=== PATIENT | male | born 1935 | race Caucasian/White ===

== ENCOUNTER 2017-03-30 08:35 | Outpatient (CLI) | payer BC ==
--- NOTE | 2017-03-30 13:24 | CT ---
CT ABDOMEN AND PELVIS WITH IV CONTRAST: Date: 03/30/17 Multiple axial tomograms obtained of the abdomen and pelvis with IV enhancement in the portal venous phase. Oral contrast was administered. HISTORY: Small cell B-cell lymphoma. Follow-up. COMPARISON: CT abdomen and pelvis dated 12/14/15. FINDINGS: Images through the lung bases again show some mild stranding in both lung bases. There is a pleural b ased nodular density seen in the left posterior gutter measuring approximately 5.0 mm. This is a stab le pleural based nodular density. Bilateral renal cystic lesions are again noted. There are several large right renal cysts which are s table with two upper pole cysts measuring 5-6 cm and a mid pole cyst on the right measuring 4.6 cm. A lower pole cyst on the right with a calcification along its posterior wall is stable and measures up to 5.0 cm. There are numerous smaller cystic lesions seen bilaterally which appear stable. There are two tiny exophytic cysts from the lateral left renal cortex which measure approximately 1.0 cm each, which are unchanged. Small bowel loops are normal caliber. Colon unremarkable. Aorta normal caliber. Nonspecific periaortic lymph nodes are stable. There is confluent linear chain of lymph nodes along t he paraaortic region on the left which are unchanged. The previously noted mass along the left pelvic side wall has enlarged since the prior study. This ma ss now measures up to 5.0 cm AP dimension in the axial plane x approximately 2.3 cm width. These eric urements were approximately 1.4 cm width x 2.5 cm AP dimension. There is suggestion of some internal calcification within this mass lesion. This mass lesion now produces some mass effect on the iliac ve ssels pushing the vascular bundle medially. This mass density now abuts the iliopsoas muscle. Prostatic hypertrophy again noted. Mildly prominent left inguinal lymph nodes again noted. There are at least two left inguinal lymph no leonor measuring up to 1.2-1.3 cm. These left inguinal nodes have slightly decreased when compared to th e prior study. On the prior exam, there was one left inguinal lymph node measuring up to 1.9 cm. Smal l nonspecific right inguinal lymph nodes are stable. IMPRESSION: 1. Enlarging left pelvic side wall mass when compared to the prior study. 2. Stable paraaortic nonspecific lymph nodes. 3. Mildly prominent left inguinal lymph nodes which have slightly decreased in size from prior exam. 4. Pleural based nodular density in the left posterior lung base is stable and may represent pleural based rounded atelectasis. 5. Bilateral renal cystic lesions appear stable. 6. Prostatic hypertrophy is unchanged in appearance. POS: [facility]
[2017-03-30] MEDS ORDERED: ISOVUE-370 76%-LOCM 1 ML ONE (17:18)
== END 2017-03-30 08:36 | disposition home or self-care (01) ==
LOC: CT 08:35
PROVIDERS: ATTEND Internal Medicine Hematology & Oncology
DX: C83.03 Small cell B-cell lymphoma, intra-abdominal lymph nodes (principal); J98.4 Other disorders of lung; N40.0 Benign prostatic hyperplasia without lower urinary tract symptoms; N28.1 Cyst of kidney, acquired; R11.2 Nausea with vomiting, unspecified; R19.07 Generalized intra-abdominal and pelvic swelling, mass and lump
CPT/HCPCS: 74177

== ENCOUNTER 2017-07-07 14:12 | Observation (INO) | payer BC, MEDICARE ==
[2017-07-07] MEDS ORDERED: Ondansetron HCl/PF 4 MG/2 ML Vial ONE (14:27)
[2017-07-07 14:46] LABS: Hemoglobin 16.5 g/dL (14.0-18.0); Mean Corpuscular HGB CONC 34.7 g/dL (32.0-36.0); Mean Corpuscular Hemoglobin 31.1 pg (27.0-31.0); Mean Corpuscular Volume 89.6 fl (80.0-94.0); Mean Platelet Volume 8.6 fL (7.4-10.4); Platelet Count 130 thou/uL (130-400); RBC Distribution Width 12.6 % (11.5-14.5); Red Blood Cell (RBC) Count 5.31 mill/uL (4.70-6.10); White Blood Cell (WBC) Count 20.9 thou/uL (4.8-10.8)
[2017-07-07 15:04] LABS: ALT (SGPT) 11 U/L (8-55); AST (SGOT) 18 U/L (5-34); Albumin 4.6 g/dL (3.4-4.8); Alkaline Phosphatase 63 U/L (40-150); Anion Gap 15 mmol/L (10-20); BUN (Urea Nitrogen) 18 mg/dL (8.4-25.7); Bilirubin, Total 1.6 mg/dL (0.2-1.2); CK (CPK) 187 U/L (30-200); Calc. Creatinine Clearance 0 mL/min (70-130); Calcium 9.5 mg/dL (7.8-10.44); Carbon Dioxide 22 mmol/L (23-31); Chloride 102 mmol/L (98-107); Estimated GFR-MDRD 52; Globulin 2.7 g/dL (2.4-3.5); Glucose 98 mg/dL (83-110); Lipase 12 U/L (8-78); Potassium 3.6 mmol/L (3.5-5.1); Protein, Total 7.3 g/dL (5.8-8.1); Sodium 135 mmol/L (136-145)
[2017-07-07 15:05] LABS: Band 14 % (5-11); Lymphocytes 8 % (21-51); MDiff Complete? YES; Monocytes 4 % (0-10); Neutrophil 74 % (42-75); PLT Morphology Comment Appears Adequate
--- NOTE | 2017-07-07 15:07 | RAD ---
PORTABLE AP CHEST: Date: 07/07/17 HISTORY: Dyspnea. COMPARISON: 09/24/05. FINDINGS: The cardiac silhouette and pulmonary vasculature are within normal limits. There are minimal linear d ensities at the left lung base medially, probably related to superimposition of structures and mild s carring. Lungs are otherwise clear. There are calcified hilar lymph nodes again seen. Bilateral acrom ioclavicular joint osteoarthritis is present. No other interval change. IMPRESSION: No acute cardiopulmonary process. POS: [facility]
[2017-07-07 15:10] LABS: Troponin I Less than 0.010 ng/mL (< 0.028)
[2017-07-07 16:42] LABS: Bilirubin Negative (Negative); Blood, Urine Large (Negative); Clarity CLEAR (Clear); Glucose, Urine (Dipstick) Negative (Negative); Leukocyte Negative (Negative); Nitrite Negative (Negative); Protein, Urine (Dipstick) Trace mg/dL (Neg-Trace); Specific Gravity, Urine 1.015 (1.002-1.036); pH, Urine 6.5 (5.0-9.0)
[2017-07-07 16:44] LABS: Bacteria/HPF None Seen HPF (None Seen); Hyaline Casts/LPF 0-3 HYALINE CAST LPF (0-3 Hyaline); Pathc Cast-AUWi Flag 0.13 (0-2.49); RBC/HPF 21-50 HPF (0-3); Squamous Epithelial 0-3 HPF (0-3); WBC/HPF 0-3 HPF (0-3)
[2017-07-07] MEDS ORDERED: Azithromycin 500 MG VIAL ONE (17:14)
[2017-07-07] MEDS ORDERED: Milk Of Magnesia 30 ML UDCUP PO PRN (19:59)
[2017-07-07] MEDS ORDERED: hydrALAZINE 20 MG/ML VIAL SLOW IVP PRN (19:59)
[2017-07-07] MEDS ORDERED: HYDROcodone/Acetaminophen 5/325 mg Tablet PO PRN (19:59)
[2017-07-07] MEDS ORDERED: cefTRIAXone\\ROCEPHIN 1 GM in Sodium Chloride 0.9% 100 ML IVPB SCH (19:59)
[2017-07-07] MEDS ORDERED: Acetaminophen 325 MG TAB PO PRN (19:59)
[2017-07-07] MEDS ORDERED: Mag-Al 1200 mg/1200 mg/30 ML UDCUP PO PRN (19:59)
[2017-07-07] MEDS ORDERED: Benzonatate 100 MG CAP PO PRN (19:59)
[2017-07-07 20:57] LABS: Lactic Acid 2.3 mmol/L (0.5-2.2)
[2017-07-07 21:49] VITALS: BMI 24.3
[2017-07-08 06:06] LABS: Anion Gap 12 mmol/L (10-20); BUN (Urea Nitrogen) 17 mg/dL (8.4-25.7); Calc. Creatinine Clearance 51 mL/min (70-130); Calcium 8.3 mg/dL (7.8-10.44); Carbon Dioxide 24 mmol/L (23-31); Chloride 102 mmol/L (98-107); Estimated GFR-MDRD 52; Glucose 95 mg/dL (83-110); Potassium 3.6 mmol/L (3.5-5.1); Sodium 134 mmol/L (136-145)
[2017-07-08 06:20] LABS: Band 28 % (5-11); Hemoglobin 13.2 g/dL (14.0-18.0); Lymphocytes 2 % (21-51); MDiff Complete? YES; Mean Corpuscular HGB CONC 34.4 g/dL (32.0-36.0); Mean Corpuscular Hemoglobin 30.5 pg (27.0-31.0); Mean Corpuscular Volume 88.8 fl (80.0-94.0); Mean Platelet Volume 9.4 fL (7.4-10.4); Monocytes 6 % (0-10); Neutrophil 64 % (42-75); PLT Morphology Comment Appears Decreased; Platelet Count 103 thou/uL (130-400); RBC Distribution Width 12.2 % (11.5-14.5); Red Blood Cell (RBC) Count 4.32 mill/uL (4.70-6.10); White Blood Cell (WBC) Count 23.4 thou/uL (4.8-10.8)
[2017-07-08 07:58] VITALS: BP 179/73; TEMP 98.2
--- NOTE | 2017-07-08 08:27 | HP ---
PRIMARY CARE PHYSICIAN: Dr. Dee Parnell. ONCOLOGIST: Dr. Mushtaq Duran. CHIEF COMPLAINT: Not feeling well. HISTORY OF PRESENT ILLNESS: Mr. García is a pleasant 82-year-old gentleman that has a history of ly mphoma. He says that he is taking an oral chemotherapy agent for this and has not had any IV chemoth erapy in over 3-4 years. He says he was feeling well until recently about 2-3 days ago. He started feeling "sick" having a cough and runny nose. Yesterday, he felt fine, but then today his symptoms c hi back. He says he has been feeling very tired and short of breath. He says that he got to the po int where he felt almost like he was going to pass out. The cough has been dry and nonproductive. H e also notes a decrease in his oral intake as well, but no nausea, no vomiting, and no diarrhea. He was evaluated in the ER and found to have an elevated white blood cell count, which is unusual from p revious CBCs in his electronic record and also had a left shift and for this reason, he is being admi tted to observation. REVIEW OF SYSTEMS: CONSTITUTIONAL: There have been no subjective fever or chills, but he has had a decrease in appetite , no weight loss. HEENT: He denies any headaches, no dizziness, no visual changes, no sore throat. He has had some ru nny nose which has been clear, he states. PULMONARY: He has had the nonproductive cough. No hemoptysis. CARDIOVASCULAR: He denies any chest pain. He has had some shortness of breath, but no PND, no ortho pnea. GASTROINTESTINAL: No abdominal pain, no nausea, no vomiting, no change in bowels. GENITOURINARY: No urinary frequency or hematuria, no hesitancy. NEUROLOGIC: No focal weakness or numbness, no seizures. PSYCHIATRIC: No symptoms of anxiety or depression. SKIN/INTEGUMENT: No skin changes. No rash. MUSCULOSKELETAL: No muscle pains or weakness. PAST MEDICAL HISTORY: Significant for lymphoma and hypertension. PAST SURGICAL HISTORY: He has had lymph node removal as well as an appendectomy and tonsillectomy. ALLERGIES: No known drug allergies. SOCIAL HISTORY: He is a former smoker. He quit about 30 years ago. He occasionally drinks a glass of wine. He is , has two children. His 's name is Mushtaq, and she is the surrogate rukhsana on maker and he wishes to be a FULL CODE. FAMILY HISTORY: No history of any inheritable diseases. MEDICATIONS: He is not sure of the names, but it sounds like he might be on Ibrutinib, but he does g o to [facility] in [place]. PHYSICAL EXAMINATION: GENERAL: He is alert and oriented. He appears to be in somewhat distress due to coughing and shortn ess of breath. VITAL SIGNS: Blood pressure was 169/79, heart rate 62, respiratory rate of 19, O2 sat was 94% on 2 l iters, temperature was 98.7. HEENT: Pupils are equal, round, and reactive. Extraocular muscles are intact. His sclerae are anic teric. Throat: There is no erythema, no exudates. NECK: No adenopathy, no bruits. LUNGS: He has got bilateral wheezing as well as rales, no rhonchi. CARDIOVASCULAR: He has a normal S1, S2. There is no S3 or S4. No murmurs, clicks or rubs. ABDOMEN: Soft, nontender, nondistended. Positive for bowel sounds. No rebound or guarding. EXTREMITIES: There is no edema. NEUROLOGICAL: The exam is nonfocal. SIGNIFICANT LABORATORY: White blood cell count 20.9, hemoglobin 16.5, hematocrit is 47.9, platelet c ount is 130. Sodium 135, potassium 3.6, chloride is 102, CO2 is 22, BUN of 18, creatinine 1.33, gluc ose is 98. Urinalysis is significant for large blood and RBCs are 21-50,000. Chest x-ray, there was no evidence of any cardiomegaly and there was no evidence of any infiltrate or pleural effusion. Th is is by my reading. ASSESSMENT AND PLAN: 1. This is a pleasant 82-year-old gentleman who is generally not feeling well. He has a significant leukocytosis with a left shift as well as a nonproductive cough, but some congestion on physical exa m. I suspect that he likely has an early pneumonia or an acute bronchitis if not an early pneumonia. He will be placed in observation. We will start him on empiric IV antibiotics including Zithromax and Rocephin. Place him also on DuoNebs and supplemental oxygen. He will be reevaluated in the a.m. and further recommendations at that time. With regards to history of lymphoma, we will need to call the pharmacy and verify the names of his medication and continue this. 2. For hypertension, we will also need to call and verify the name of his antihypertensive medicatio ns and restart these as indicated. He will also need to be placed on a p.r.n. medication as well giv en the elevated blood pressure in the emergency room.
--- NOTE | 2017-07-08 08:54 | PDOC.PN ---
- Subjective Encounter Start Date: 07/08/17 Encounter Start Time: 08:52 Mr. Hernandes was seen today in follow-up. He says he feels much better this morning. He is less short of breath, and has ambulated some in his room. - Objective Resuscitation Status: Resuscitation Status FULL:Full Resuscitation MAR Reviewed: Yes Vital Signs & Weight: Vital Signs (12 hours) Temp Pulse Resp BP Pulse Ox 07/08/17 07:39 62 16 97 07/08/17 07:00 98.2 F 70 20 179/73 H 98 07/08/17 04:00 98 07/08/17 02:52 98.9 F 77 12 131/60 98 07/08/17 00:00 97 07/07/17 23:57 99.2 F 71 16 127/60 97 07/07/17 22:35 56 L 16 97 07/07/17 21:11 68 16 Weight Weight 179 lb 11.2 oz I&O: 07/07/17 07/08/17 07/09/17 06:59 06:59 06:59 Intake Total 750 Output Total 550 Balance 200 Result Diagrams: 07/08/17 05:18 07/08/17 05:18 Phys Exam - Physical Examination HEENT: PERRLA Respiratory: no rales, wheezing present + rhonchi bilaterally Cardiovascular: RRR, no significant murmur, no rub Gastrointestinal: soft, non-tender, positive bowel sounds Musculoskeletal: no edema Dx/Plan (1) Acute bronchitis Code(s): J20.9 - ACUTE BRONCHITIS, UNSPECIFIED Status: Acute (2) Lymphoma Status: Acute (3) Leukocytosis Code(s): D72.829 - ELEVATED WHITE BLOOD CELL COUNT, UNSPECIFIED Status: Acute (4) Hypertension Code(s): I10 - ESSENTIAL (PRIMARY) HYPERTENSION Status: Acute - Plan * Acute Bronchitis- he has improved symptomatically- will begin to wean oxygen * Ambulate as tolerated * Leukocytosis- this may be due to the Lymphoma? * HTN- re-start Ibesartan. * Possibly home later today
[2017-07-08] MEDS ORDERED: Enoxaparin Sodium 30 MG/0.3 ML SYRINGE SC SCH (09:00)
[2017-07-08] MEDS ORDERED: IBRUTINIB PO SCH ×2 (09:00)
--- NOTE | 2017-07-08 17:22 | DIS ---
DATE OF ADMISSION: 07/07/2017 DATE OF DISCHARGE: 07/08/2017 PRIMARY CARE PHYSICIAN: Dr. Dee Parnell. DISCHARGE DISPOSITION: Home. PRIMARY DISCHARGE DIAGNOSES: 1. Acute bronchitis. 2. Hypertension. 3. History of lymphoma. 4. Leukocytosis. DISCHARGE MEDICATIONS: Include azithromycin 250 mg daily, Tessalon Perles 100 mg q.4 hours as needed , Proventil inhaler 2 puffs q.i.d., Imbruvica 3 capsules daily i.e., 140 mg and irbesartan 300 mg kedar ly. CODE STATUS: FULL CODE. ALLERGIES: No known drug allergies. HOSPITAL COURSE: Mr. García is a pleasant 82-year-old gentleman who presented to the emergency room complaining of not feeling very well. He has also been having a productive cough and some dyspnea. He was found to have leukocytosis. Chest x-ray was clear, but he had quite a bit of wheezing and rh onchi on exam. It is suspected that he has an acute bronchitis and given his advanced age and comorb id history of lymphoma, he was placed in observation to be treated. He was given IV fluids as well a s IV antibiotics including Rocephin and azithromycin and DuoNebs. He improved dramatically over the course of the night and was subsequently able to be discharged home and to have close followup with h is primary care physician in 1-2 weeks.
[2017-07-08] MEDS ORDERED: cefTRIAXone\\ROCEPHIN 1 GM, Syringe 0.4 ML in Sterile Water 9.6 ML SLOW IVP SCH (18:00)
[2017-07-08] MEDS ORDERED: Azithromycin 500 MG in Sodium Chloride 0.9% 250 ML 250 ML IVPB SCH (18:00)
--- NOTE | 2017-07-26 01:26 | EKG ---
Test Reason : Blood Pressure : / mmHG Vent. Rate : 053 BPM Atrial Rate : 053 BPM P-R Int : 142 ms QRS Dur : 080 ms QT Int : 430 ms P-R-T Axes : 068 -22 047 degrees QTc Int : 403 ms Sinus bradycardia Septal infarct , age undetermined Abnormal ECG Confirmed by HIEU DECKER, FAROOQ ([id number]), assistant editor SHAYE CRUMP ([id number]) on 07/26/2017 1:25:44 AM Referred By: Confirmed By:FAROOQ HAGEN MD
== END 2017-07-08 15:44 | disposition home or self-care (01) ==
LOC: ERS 14:12 → ONC 19:55
PROVIDERS: ADMIT Internal Medicine; ATTEND Internal Medicine
DX: J20.9 Acute bronchitis, unspecified (principal); I10 Essential (primary) hypertension; C85.90 Non-Hodgkin lymphoma, unspecified, unspecified site; D72.829 Elevated white blood cell count, unspecified; Z79.899 Other long term (current) drug therapy; Z90.49 Acquired absence of other specified parts of digestive tract; Z90.89 Acquired absence of other organs; Z98.890 Other specified postprocedural states; Z87.891 Personal history of nicotine dependence
CPT/HCPCS: 36415; 71045; 80048; 80053; 81003; 81015; 82550; 82553; 83605; 83690; 84484; 85025; 87040; 87086; 87804; 93005; 94640; 94760; 96361; 96365; 96366; 96375; A4216; G0378; J0456; J0696; J2405; J7050; J7620

== ENCOUNTER 2017-10-13 08:18 | Outpatient (CLI) | payer BC, OTHER ==
--- NOTE | 2017-10-13 12:02 | CT ---
CT ABDOMEN AND PELVIS WITH CONTRAST: Date: 10/13/17 HISTORY: Lymphoma follow-up. COMPARISON: CT abdomen and pelvis dated 03/30/17, 12/14/15. FINDINGS: Using the same plane of reference, the left pelvic side wall mass now measures approximately 3.8 x 1. 7 cm, previously 4.6 x 2.3 cm. The left superficial inguinal lymph node had previously measured 12.0 mm, and using same plane of measurement it measures approximately 6.0 mm. Another superficial inguina l lymph node had measured just under 13.0 mm in size on the prior examination and now measures approx imately 9.0 mm. The lung bases are clear. No pericardial effusion. The innumerable renal hypodensities are similar to the comparison examination. No solid component. There are multiple left-sided renal hypodensities, a lthough the hypodensity at the anterior cortex interpolar left kidney does not measure fluid attenuat ion and has very minimal growth from 2014, measuring 11.0 mm, previously 8.0 mm. The aortoiliac contour is nonaneurysmal. Left common iliac lymph node measures approximately 1.0 cm i n short axis, similar to the comparison examination. Small retroperitoneal and periaortic lymph nodes are all very similar. There are calcified granulomas of the spleen. Small, fat-containing indirect inguinal hernia on the r ight. Prostate is markedly enlarged. Advanced degenerative changes of both hip joints. Moderate facet arthr osis lower lumbar spine. Pancreas is mildly atrophic. No mesenteric adenopathy. IMPRESSION: 1. Using the same plane of reference, the left pelvic side wall mass, as well as inguinal lymph node s, continue to decrease in size. 2. Very mild increase in size over the past 3 years of interpolar left renal hypodensity which measu res greater than fluid attenuation. It may reflect developing hemorrhage or protein within a cyst. Cy st can have interval growth over a period of time and a malignant process would likely have a greater rate of growth. Continued attention on follow-up examinations recommended. POS: [facility]
[2017-10-13] MEDS ORDERED: Iopamidol 370 76% 100 ML VIAL ONE (13:05)
== END 2017-10-13 08:19 | disposition home or self-care (01) ==
LOC: CT 08:18
PROVIDERS: ATTEND Internal Medicine Hematology & Oncology
DX: C85.90 Non-Hodgkin lymphoma, unspecified, unspecified site (principal)
CPT/HCPCS: 74177; 82565

== ENCOUNTER → 2017-11-11 | Day surgery (SDC) | payer BC ==
[2017-11-10 13:44] VITALS: BMI 23.4
[~2017-11-11] MED LIST: Fentanyl 100 MCG/2 ML VIAL ONE; Heparin 10,000 UNITS/1 ML VIAL ONE; Iopamidol 370 76% 100 ML VIAL ONE; Lidocaine 1% (PF) 30 ML VIAL ONE; Midazolam HCl 2 mg/2 ml Vial ONE; Nitroglycerin 100MG/250ML BOT 250 ML ONE; Verapamil 5 MG/2 ML VIAL ONE
--- NOTE | 2017-11-11 15:41 | EKG ---
Test Reason : PREOP Blood Pressure : / mmHG Vent. Rate : 063 BPM Atrial Rate : 063 BPM P-R Int : 154 ms QRS Dur : 090 ms QT Int : 444 ms P-R-T Axes : 080 023 056 degrees QTc Int : 454 ms Normal sinus rhythm Normal ECG When compared with ECG of 07-JUL-2017 14:16, No significant change was found Confirmed by REBEKA DECKER, SLoraine ([id number]) on 11/11/2017 3:40:22 PM Referred By: ERMIAS Confirmed By:DR. Romel STALEY MD
== END ==
LOC: CCL 06:27
PROVIDERS: ATTEND Internal Medicine Cardiovascular Disease
DX: R06.02 Shortness of breath (principal); R07.89 Other chest pain; I20.8 Other forms of angina pectoris; I10 Essential (primary) hypertension; C85.90 Non-Hodgkin lymphoma, unspecified, unspecified site; Z79.899 Other long term (current) drug therapy
CPT/HCPCS: 82565; 93005; 93010; 93454; 99152; C1769; J1644; J2001; J2250; J3010

== ENCOUNTER 2018-04-09 09:18 | Outpatient (CLI) | payer BC ==
--- NOTE | 2018-04-09 12:17 | CT ---
CT OF THE ABDOMEN AND PELVIS WITH IV CONTRAST: Date: 04/09/18 PROVIDED CLINICAL HISTORY: Lymphoma. FINDINGS: Comparison with 10/13/17 and 03/30/17. Interval development of multiple tree-in-bud nodules involving the posterior aspects of both lung bas es with minimal associated consolidation. The solid abdominal organs demonstrate a stable CT appearance. There is no bowel dilatation, inflammatory fat stranding, free fluid, or lymph node enlargement. There is a stable soft tissue mass with associated calcification in left pelvic side wall. The prostate gland remains enlarged. Vascular calcifications are seen. There is ankylosis of the sacr oiliac joints bilaterally. The osseous structures demonstrate no concerning lytic or blastic lesions. IMPRESSION: 1. Bibasilar nodular opacities, typical for infectious pneumonitis. 2. Otherwise stable CT of the abdomen and pelvis. POS: [facility]
== END 2018-04-09 09:19 | disposition home or self-care (01) ==
LOC: CT 09:18
PROVIDERS: ATTEND Internal Medicine Hematology & Oncology
DX: C85.90 Non-Hodgkin lymphoma, unspecified, unspecified site (principal); R91.8 Other nonspecific abnormal finding of lung field; J18.9 Pneumonia, unspecified organism
CPT/HCPCS: 74177; 82565

== ENCOUNTER 2018-07-24 14:17 | Inpatient (IN) | payer MEDICARE, BC ==
--- NOTE | 2018-07-24 14:44 | RAD ---
FRadiograph chest one view: 07/24/2018 2:31 PM HISTORY: 83-year-old male with dyspnea COMPARISON: 07/07/2018 FINDINGS: Mildly increased density in the medial left lung base in the retrocardiac region appears slightly wor se on the current study compared to previous. No pulmonary edema or consolidation. No cardiomegaly or pneumothorax. IMPRESSION: Nonspecific finding of mildly increased density in the medial base of left lower lobe.
[2018-07-24 14:51] LABS: #Lymphocytes 0.5 thou/uL (1.20-3.40); #Neutrophils 16.9 thou/uL (1.40-6.50); %Basophils 0.1 % (0.0-1.0); %Eosinophils 0.2 % (0.0-10.0); %Lymphocytes 2.7 % (21.0-51.0); %Monocytes 5.5 % (0.0-10.0); %Neutrophils 91.5 % (42.0-75.0); Hemoglobin 14.3 g/dL (14.0-18.0); Mean Corpuscular HGB CONC 31.9 g/dL (32.0-36.0); Mean Corpuscular Hemoglobin 28.9 pg (27.0-31.0); Mean Corpuscular Volume 90.5 fL (78.0-98.0); Mean Platelet Volume 9.4 fL (7.4-10.4); Platelet Count 136 thou/uL (130-400); RBC Distribution Width 12.8 % (11.5-14.5); Red Blood Cell (RBC) Count 4.96 mill/uL (4.70-6.10); White Blood Cell (WBC) Count 18.5 thou/uL (4.8-10.8)
[2018-07-24 15:05] LABS: ALT (SGPT) 11 U/L (8-55); AST (SGOT) 15 U/L (5-34); Albumin 4.4 g/dL (3.4-4.8); Alkaline Phosphatase 53 U/L (40-150); Anion Gap 15 mmol/L (10-20); BUN (Urea Nitrogen) 18 mg/dL (8.4-25.7); Bilirubin, Total 1.2 mg/dL (0.2-1.2); Calc. Creatinine Clearance 0 mL/min (70-130); Calcium 9.4 mg/dL (7.8-10.44); Carbon Dioxide 24 mmol/L (23-31); Chloride 101 mmol/L (98-107); Estimated GFR-MDRD 43; Globulin 2.6 g/dL (2.4-3.5); Glucose 101 mg/dL (83-110); Sodium 136 mmol/L (136-145)
[2018-07-24 15:12] LABS: Bilirubin Negative (Negative); Blood, Urine Large (Negative); Clarity CLEAR (Clear); Glucose, Urine (Dipstick) Negative (Negative); Leukocyte Negative (Negative); Nitrite Negative (Negative); Protein, Urine (Dipstick) Trace mg/dL (Neg-Trace); Specific Gravity, Urine 1.013 (1.002-1.036); pH, Urine 7.5 (5.0-9.0)
[2018-07-24 15:15] LABS: Bacteria/HPF None Seen HPF (None Seen); Hyaline Casts/LPF 0-3 HYALINE CAST LPF (0-3 Hyaline); RBC/HPF GREATER THAN 50-TNTC HPF (0-3); Squamous Epithelial 0-3 HPF (0-3)
[2018-07-24] MEDS ORDERED: Sodium Chloride 0.9% 100 ML ONE (15:40)
[2018-07-24] MEDS ORDERED: Azithromycin 500 MG VIAL ONE (15:40)
[2018-07-24] MEDS ORDERED: cefTRIAXone\\ROCEPHIN 1 GM VIAL ONE (15:40)
[2018-07-24] MEDS ORDERED: Acetaminophen 500 MG TAB ONE (15:40)
[2018-07-24] MEDS ORDERED: Bisacodyl 5 MG TAB PO PRN (18:04)
[2018-07-24] MEDS ORDERED: Acetaminophen 650 MG Suppository PR PRN (18:04)
--- NOTE | 2018-07-24 18:40 | HP ---
PRIMARY CARE PROVIDER: Dee Parnell MD CHIEF COMPLAINT: Cough. HISTORY OF PRESENT ILLNESS: Mr. García is a pleasant 83-year-old gentleman, who was seen at [facility] on July 24, 2018. The patient is able to provide good history. He reports that he was doing well until one week ago. At that time, he developed cough. The cough is productive of sputum, but does not know the color because he is not able to bring the sputum up. He denies any nausea or vomiting. He denies any fevers at home, but had fever in the emergency room. He reports that the cough is accompanied by shortness of breath. He denies any chest pain. He denies any abdominal pain. REVIEW OF SYSTEMS: All other systems reviewed and found to be negative. PAST MEDICAL HISTORY: Lymphoma status post chemotherapy, currently on Imbruvica; hypertension. PAST SURGICAL HISTORY: Lymph node removal, appendectomy, and tonsillectomy. SOCIAL HISTORY: The patient denies tobacco use, alcohol use, or recreational drug use. Uses a walker to ambulate. FAMILY HISTORY: No family history of premature coronary artery disease. CODE STATUS: I discussed his code status. He is full code. ALLERGIES: NO KNOWN DRUG ALLERGIES. CURRENT MEDICATIONS: 1. Imbruvica 420 mg daily. 2. Amlodipine 10 mg daily. 3. Lisinopril 20 mg tablets, 2 tablets in the morning and 1 tablet in the evening. 4. Please note, the patient reports that lisinopril gives him cough, but it has been the one medication that has worked well for him, so he is continuing on lisinopril. PHYSICAL EXAMINATION: GENERAL: On examination, Mr. García is awake and alert, not in acute distress. VITAL SIGNS: Blood pressure is 146/79, pulse 79, respiratory rate 24, and oxygen saturation 96% on room air. T-max in the emergency room was 102.6. EYES: No scleral icterus, no conjunctival pallor. ENT: Dry mucosal membranes, no oropharyngeal erythema or exudates. NECK: Supple, nontender, trachea is midline. RESPIRATORY: Accessory muscles of breathing are not active. Chest wall movements are symmetric bilaterally. He has left basal bronchial breath sounds. CARDIOVASCULAR: S1 and S2 are heard, regular. Peripheral pulses palpable. No carotid bruit. No pericardial rub. ABDOMEN: Soft, nontender, bowel sounds heard. NEUROLOGIC: Cranial nerves 2 through 12 intact, deep tendon reflexes 2+. MUSCULOSKELETAL: Power is 5/5 in all 4 extremities. SKIN: No rashes or subcutaneous nodules. LYMPHATIC: No cervical lymphadenopathy. PSYCHIATRIC: Normal mood, normal affect. The patient is oriented to person, place, and time. LABORATORY DATA: Mr. García's labs and investigations were reviewed. He had a chest x-ray, which shows left lower lobe infiltrate. He has white count with 18,500 white cells of which 91.5% are neutrophils, normal hemoglobin, normal platelet count, creatinine elevated at 1.55, last known creatinine 1.50 on April 14, 2018, otherwise unremarkable comprehensive metabolic profile and normal lactic acid level of 2.0. Urinalysis is negative for nitrite and leukocyte esterase. ASSESSMENT AND PLAN: Mr. García is a pleasant 83-year-old gentleman, who was seen at [facility] on July 24, 2018. His problem list includes: 1. Sepsis: Mr. García is presenting with sepsis, secondary to pneumonia. He will be admitted to the hospital for further management including intravenous fluids and intravenous antibiotics. 2. Pneumonia: Mr. García will be admitted to the hospital and treated with intravenous cefepime and levofloxacin, given his immunocompromised status. 3. Lymphoma: We will continue Imbruvica while he is in the hospital. 4. Hypertension: We will restart his home medications, monitor vital signs and titrate antihypertensives as needed. Many thanks for allowing me to participate in your patient's care. Please feel free to contact me with any questions or concerns. LEVEL OF RISK: Moderate. LEVEL OF COMPLEXITY: Moderate. Job ID: [id number]
[2018-07-24] MEDS: Sodium Chloride 0.9% 1,000 ML IV SCH (20:19)
[2018-07-24 20:58] VITALS: BMI 25.5
[2018-07-24] MEDS ORDERED: Lisinopril 20 MG TAB PO SCH (21:00)
[2018-07-24] MEDS: Cefepime 2 GM in Sodium Chloride 0.9% 100 ML IVPB SCH (21:50)
[2018-07-24] MEDS: Acetaminophen 325 MG TAB PO PRN (23:57)
[2018-07-25 04:22] LABS: #Lymphocytes 0.8 thou/uL (1.20-3.40); #Monocytes 1.3 thou/uL (0.11-0.59); #Neutrophils 15.8 thou/uL (1.40-6.50); %Basophils 0.2 % (0.0-1.0); %Eosinophils 0.3 % (0.0-10.0); %Lymphocytes 4.7 % (21.0-51.0); %Monocytes 7.1 % (0.0-10.0); %Neutrophils 87.8 % (42.0-75.0); Hemoglobin 12.5 g/dL (14.0-18.0); Mean Corpuscular HGB CONC 33.5 g/dL (32.0-36.0); Mean Corpuscular Hemoglobin 30.4 pg (27.0-31.0); Mean Corpuscular Volume 90.8 fL (78.0-98.0); Mean Platelet Volume 9.5 fL (7.4-10.4); Platelet Count 115 thou/uL (130-400); RBC Distribution Width 12.7 % (11.5-14.5); Red Blood Cell (RBC) Count 4.13 mill/uL (4.70-6.10)
[2018-07-25 04:35] LABS: Anion Gap 13 mmol/L (10-20); BUN (Urea Nitrogen) 18 mg/dL (8.4-25.7); Calc. Creatinine Clearance 49 mL/min (70-130); Calcium 8.3 mg/dL (7.8-10.44); Carbon Dioxide 20 mmol/L (23-31); Chloride 106 mmol/L (98-107); Estimated GFR-MDRD 49; Glucose 91 mg/dL (83-110); Potassium 3.9 mmol/L (3.5-5.1); Sodium 135 mmol/L (136-145)
[2018-07-25] MEDS: Lisinopril 20 MG TAB PO SCH ×2 (08:01→19:56)
[2018-07-25] MEDS: Enoxaparin Sodium 40 MG/0.4 ML SYRINGE SC SCH (08:02)
[2018-07-25] MEDS ORDERED: Amlodipine 10 MG TAB PO SCH ×2 (09:00→20:00)
[2018-07-25] MEDS ORDERED: Lisinopril 20 MG TAB PO SCH ×2 (09:00→20:00)
[2018-07-25] MEDS: Cefepime 2 GM in Sodium Chloride 0.9% 100 ML IVPB SCH ×2 (10:10→21:19)
[2018-07-25] MEDS: IBRUTINIB 420 MG PO SCH (10:10)
[2018-07-25] MEDS: Sodium Chloride 0.9% 1,000 ML IV SCH (11:54)
--- NOTE | 2018-07-25 12:53 | PDOC.PN ---
- Subjective Encounter Start Date: 07/25/18 Encounter Start Time: 07:00 Pt seen for followup re: sepsis. Reports cough, minimal sputum. Fever+ - Objective Resuscitation Status - Order Detail: 07/24/18 18:04 Resuscitation Status Routine Resuscitation Status: FULL: Full Resuscitation Discussed with: patient Vital Signs & Weight: Vital Signs (12 hours) Temp Pulse Resp BP Pulse Ox 07/25/18 12:05 60 12 07/25/18 12:00 99.1 F 72 16 180/77 H 94 L 07/25/18 08:00 99.8 F H 67 16 158/70 H 92 L 07/25/18 03:12 98.6 F 66 16 134/61 92 L Weight Weight 183 lb I&O: 07/24/18 07/25/18 07/26/18 06:59 06:59 06:59 Intake Total 1190 Output Total 425 Balance 765 Result Diagrams: 07/25/18 03:55 07/25/18 03:55 Phys Exam - Physical Examination Constitutional: NAD HEENT: moist MMs, sclera anicteric, oral pharynx no lesions, 2+ tonsils Neck: no nodes, no JVD, supple, full ROM Respiratory: clear to auscultation bilateral Cardiovascular: RRR, no rub S1, S2 Gastrointestinal: soft, non-tender, no distention, positive bowel sounds Neurological: moves all 4 limbs Psychiatric: normal affect, A&O x 3 Dx/Plan (1) Sepsis Code(s): A41.9 - SEPSIS, UNSPECIFIED ORGANISM Status: Acute Comment: Improving, secondary to pneumonia (2) Pneumonia Code(s): J18.9 - PNEUMONIA, UNSPECIFIED ORGANISM Status: Acute Comment: continue IV cefepime and levofloxacin (3) Hypertension Code(s): I10 - ESSENTIAL (PRIMARY) HYPERTENSION Status: Chronic Comment: BP still high, start hydralazine (4) Lymphoma Status: Chronic Comment: continue ibrutinib - Plan continue antibiotics, out of bed/ambulate * . Review of Systems - Review of Systems Constitutional: weakness. negative: fever, chills, sweats, malaise ENT: negative: Ear Pain, Ear Discharge, Nose Pain, Nose Discharge, Nose Congestion, Mouth Pain, Mouth Swelling, Throat Pain, Throat Swelling Respiratory: Cough, Sputum. negative: Dry, Shortness of Breath, Hemoptysis, SOB with Excertion, Pleuritic Pain, Wheezing Cardiovascular: negative: chest pain, palpitations, orthopnea, paroxysmal nocturnal dyspnea, edema, light headedness Gastrointestinal: negative: Nausea, Vomiting, Abdominal Pain, Diarrhea, Constipation, Melena, Hematochezia Skin: negative: Rash, Lesions, Joey, Bruising - Medications/Allergies Allergies/Adverse Reactions: Allergies Allergy/AdvReac Type Severity Reaction Status Date / Time No Known Allergies Allergy Verified 07/24/18 19:56 Medications: Current Medications Acetaminophen (Tylenol) 650 mg PO Q4H PRN PRN Reason: Headache/Fever/Mild Pain (1-3) Last Admin: 07/24/18 23:57 Dose: 650 mg Acetaminophen (Tylenol) 650 mg KS Q4H PRN PRN Reason: Headache/Fever/Mild Pain (1-3) Albuterol/Ipratropium (Duoneb) 3 ml NEB [id number] PRN PRN Reason: SOB &/or Wheezing Last Admin: 07/25/18 12:05 Dose: 3 ml Bisacodyl (Dulcolax) 10 mg PO DAILYPRN PRN PRN Reason: Constipation Enoxaparin Sodium (Lovenox) 40 mg SC 0900 [facility] Last Admin: 07/25/18 08:02 Dose: Not Given Cefepime HCl 2 gm/ Sodium (Chloride) 100 mls @ 200 mls/hr IVPB Q12HR [facility] Last Admin: 07/25/18 10:10 Dose: 100 mls Levofloxacin 750 mg/ Device 150 mls @ 100 mls/hr IVPB Q24HR [facility] Last Admin: 07/24/18 20:19 Dose: 150 mls Sodium Chloride (Normal Saline 0.9%) 1,000 mls @ 75 mls/hr IV .[id number] [facility] Last Admin: 07/25/18 11:54 Dose: 1,000 mls Ibrutinib [Imbruvica (] 420 Mg Tablet) 0 each PO DAILY [facility] Last Admin: 07/25/18 10:10 Dose: 1 each Lisinopril 20 Mg Tab 0 each PO QAM [facility] Last Admin: 07/25/18 08:01 Dose: 1 each Lisinopril 20 Mg Tab 0 each PO 2000 [facility] Amlodipine 10 Mg Tab 0 each PO HS [facility] Sodium Chloride (Flush - Normal Saline) 10 ml IVF Q12HR [facility] Last Admin: 07/25/18 08:06 Dose: 10 ml Sodium Chloride (Flush - Normal Saline) 10 ml IVF PRN PRN PRN Reason: Saline Flush
[2018-07-25] MEDS: Acetaminophen 325 MG TAB PO PRN (16:30)
[2018-07-25] MEDS: Amlodipine 10 MG TAB PO SCH (21:19)
[2018-07-26] MEDS: Sodium Chloride 0.9% 1,000 ML IV SCH ×2 (03:40→11:51)
[2018-07-26] MEDS ORDERED: Lorazepam 1 MG TAB PO SCH (04:15)
[2018-07-26] MEDS: Enoxaparin Sodium 40 MG/0.4 ML SYRINGE SC SCH (08:19)
[2018-07-26] MEDS: Cefepime 2 GM in Sodium Chloride 0.9% 100 ML IVPB SCH (08:19)
[2018-07-26] MEDS: Lisinopril 20 MG TAB PO SCH ×2 (08:19→20:03)
[2018-07-26] MEDS: IBRUTINIB 420 MG PO SCH (09:49)
[2018-07-26 11:34] LABS: #Basophils 0.1 thou/uL (0.0-0.2); #Eosinphils 0.1 thou/uL (0.0-0.7); #Lymphocytes 1.5 thou/uL (1.20-3.40); #Monocytes 1.1 thou/uL (0.11-0.59); #Neutrophils 8.7 thou/uL (1.40-6.50); %Basophils 0.6 % (0.0-1.0); %Eosinophils 0.8 % (0.0-10.0); %Lymphocytes 13.1 % (21.0-51.0); %Monocytes 9.7 % (0.0-10.0); %Neutrophils 75.8 % (42.0-75.0); Mean Corpuscular HGB CONC 32.6 g/dL (32.0-36.0); Mean Corpuscular Hemoglobin 29.3 pg (27.0-31.0); Mean Platelet Volume 9.6 fL (7.4-10.4); Platelet Count 115 thou/uL (130-400); RBC Distribution Width 12.7 % (11.5-14.5); Red Blood Cell (RBC) Count 4.78 mill/uL (4.70-6.10); White Blood Cell (WBC) Count 11.5 thou/uL (4.8-10.8)
--- NOTE | 2018-07-26 14:24 | CT ---
CT Chest WO Con History: [Interstitial pneumonia] Comparison: Radiograph July 24, 2018 Findings: There is mild tubular bronchiectasis in the upper lobes and lower levels. There is consolid ation in both lower lobes. No evidence for interstitial lung disease. No pneumothorax. No large effusion. Few posterior segment right upper lobe centrilobular nodules. No mediastinal adenopathy. Calcified left hilar lymph nodes. Largest cystic structures are present in the expected location of the superior pole right kidney with no normal renal parenchyma appreciated. Impression: Tubular bronchiectasis in the lower lobes as well as the posterior segment right upper lo be likely post infectious in nature with superimposed bibasilar pneumonia and right upper lobe pneumo vibha. Follow up after treatment is recommended. No evidence for interstitial lung disease.
--- NOTE | 2018-07-26 16:44 | PDOC.PN ---
- Subjective Encounter Start Date: 07/26/18 Encounter Start Time: 10:15 Subjective: pt up in chair wants to go home - Objective Resuscitation Status - Order Detail: 07/24/18 18:04 Resuscitation Status Routine Resuscitation Status: FULL: Full Resuscitation Discussed with: patient Vital Signs & Weight: Vital Signs (12 hours) Temp Pulse Resp BP BP Pulse Ox 07/26/18 16:00 98.0 F 66 18 169/77 H 93 L 07/26/18 13:30 67 163/73 H 07/26/18 11:41 98.0 F 60 18 188/80 H 94 L 07/26/18 08:00 92 L 07/26/18 07:57 98.7 F 68 20 168/77 H 92 L Weight Weight 183 lb I&O: 07/25/18 07/26/18 07/27/18 06:59 06:59 06:59 Intake Total 1190 1100 Output Total 425 2500 Balance 765 -1400 Result Diagrams: 07/26/18 10:58 07/25/18 03:55 Phys Exam - Physical Examination Neck: no nodes, no JVD, supple, full ROM mild rhonchi all over Cardiovascular: RRR, no significant murmur, no rub, gallop, irregular Gastrointestinal: soft, non-tender, no distention, positive bowel sounds Musculoskeletal: no edema, pulses present, edema present Dx/Plan (1) Pneumonia Code(s): J18.9 - PNEUMONIA, UNSPECIFIED ORGANISM Status: Acute Comment: continue IV cefepime and levofloxacin (2) Leukocytosis Code(s): D72.829 - ELEVATED WHITE BLOOD CELL COUNT, UNSPECIFIED Status: Acute (3) Lymphoma Status: Chronic Comment: continue ibrutinib - Plan significant improved in wbc, will consult ID given his complexity -: pt eating will discontinue iv fluids. -: pt has been coughing and states that it is due to his lisinopril -: told pt i can discontinue it he stated he will follow up with his -: primary care doctor and would not change anything. * . Review of Systems - Review of Systems Respiratory: Cough Cardiovascular: negative: chest pain, palpitations, orthopnea, paroxysmal nocturnal dyspnea, edema, light headedness, other Gastrointestinal: negative: Nausea, Vomiting, Abdominal Pain, Diarrhea, Constipation, Melena, Hematochezia, Other - Medications/Allergies Allergies/Adverse Reactions: Allergies Allergy/AdvReac Type Severity Reaction Status Date / Time No Known Allergies Allergy Verified 07/24/18 19:56 Medications: Current Medications Acetaminophen (Tylenol) 650 mg PO Q4H PRN PRN Reason: Headache/Fever/Mild Pain (1-3) Last Admin: 07/25/18 16:30 Dose: 650 mg Acetaminophen (Tylenol) 650 mg IN Q4H PRN PRN Reason: Headache/Fever/Mild Pain (1-3) Albuterol/Ipratropium (Duoneb) 3 ml NEB [id number] PRN PRN Reason: SOB &/or Wheezing Last Admin: 07/25/18 12:05 Dose: 3 ml Bisacodyl (Dulcolax) 10 mg PO DAILYPRN PRN PRN Reason: Constipation Enoxaparin Sodium (Lovenox) 40 mg SC 0900 [facility] Last Admin: 07/26/18 08:19 Dose: Not Given Cefepime HCl 2 gm/ Sodium (Chloride) 100 mls @ 200 mls/hr IVPB Q12HR [facility] Last Admin: 07/26/18 08:19 Dose: 100 mls Levofloxacin 750 mg/ Device 150 mls @ 100 mls/hr IVPB Q24HR [facility] Last Admin: 07/25/18 19:57 Dose: 150 mls Ibrutinib [Imbruvica (] 420 Mg Tablet) 0 each PO DAILY [facility] Last Admin: 07/26/18 09:49 Dose: 1 each Lisinopril 20 Mg Tab 0 each PO QAM [facility] Last Admin: 07/26/18 08:19 Dose: 1 each Lisinopril 20 Mg Tab 0 each PO 2000 [facility] Last Admin: 07/25/18 19:56 Dose: 1 each Amlodipine 10 Mg Tab 0 each PO HS [facility] Last Admin: 07/25/18 21:19 Dose: 1 each Sodium Chloride (Flush - Normal Saline) 10 ml IVF Q12HR [facility] Last Admin: 07/26/18 08:20 Dose: 10 ml Sodium Chloride (Flush - Normal Saline) 10 ml IVF PRN PRN PRN Reason: Saline Flush
[2018-07-26] MEDS ORDERED: Lorazepam 1 MG TAB PO PRN (19:32)
[2018-07-26] MEDS: Amlodipine 10 MG TAB PO SCH (20:02)
--- NOTE | 2018-07-27 01:19 | CON ---
DATE OF CONSULTATION: 07/26/2018 REASON FOR CONSULTATION: Possible pneumonia. HISTORY OF PRESENT ILLNESS: An 83-year-old who has history of lymphoma in remission after chemotherapy, he is currently on maintenance Imbruvica, as well as a history of hypertension and reportedly he starts coughing every time he takes his antihypertensive medication, sometimes has sputum, sometimes does not. He had some dyspnea associated, came to the emergency room and in the ER, he had a low-grade temperature elevation, which was not present at home, he was therefore admitted. He is feeling back to baseline now. No headaches. No visual symptoms. Mild cough. No chest pain. No abdominal pain or diarrhea. No genitourinary symptoms. No neurological symptoms. PAST MEDICAL HISTORY: Lymphoma with chemotherapy, currently on Imbruvica maintenance; hypertension. PAST SURGICAL HISTORY: Lymph node removal, appendectomy, and tonsillectomy. SOCIAL HISTORY: Never smoker. No other drug use. FAMILY HISTORY: Noncontributory. ALLERGIES: NONE. CURRENT MEDICATIONS: Tylenol, DuoNeb, Dulcolax, cefepime, Lovenox, levofloxacin, ibrutinib, lisinopril, and Norvasc. PHYSICAL EXAMINATION: VITAL SIGNS: T-max 100.7, BP 169/77, pulse 66, respirations 18. SKIN: Not particularly remarkable. No lymphadenopathy. The patient has a peripheral IV access and is voiding in the toilet. HEENT: Ocular movements conjugate. Oral cavity normal. NECK: Supple. LUNGS: Symmetric. Clear breath sounds. HEART: S1 and S2. Regular rate. No S3 or S4. ABDOMEN: Soft, not distended or tender. No ascites. No bladder distention. MUSCULOSKELETAL: No joint inflammatory process. NEUROLOGICAL: Nonfocal. LABORATORY DATA: White cell count is 18.5 and now 11.5, hemoglobin 14, platelets 136, neutrophils 91. Chemistry is fairly unremarkable. Creatinine was 1.55, now is 1.39. Liver profile normal. Albumin 4.4, globulin 2.6. Urinalysis with 4 to 6 wbc's. Microbiology with negative blood cultures at 48 hours. Urine culture negative as well. Influenza A and B was negative. The patient had an abdomen and pelvis CT in March which showed nodular opacities in basilar lung regions. The patient had a chest CT done which showed tubular bronchiectasis in lower lobes and posterior segment right upper lobe with superimposed bibasilar pneumonia and right upper lobe pneumonia. ASSESSMENT: 1. Lymphoma, on Imbruvica. 2. Pneumonia. DISCUSSION: Imbruvica is associated with immunosuppression and it tends to increase the risk of fungal infections including Aspergillus, Pneumocystis, and cryptococcus neoformans. Continue current antimicrobial therapy and consider switching to oral regimen with quinolone or doxycycline plus Omnicef. Check Fungitell assay and follow up the resolution of the findings. If he does not get better, may need bronchoscopy for diagnostic studies. Also submit Pneumocystis PCR and the sputum. Job ID: [id number]
[2018-07-27 08:06] VITALS: TEMP 98
[2018-07-27] MEDS: Enoxaparin Sodium 40 MG/0.4 ML SYRINGE SC SCH (09:42)
[2018-07-27] MEDS: Lisinopril 20 MG TAB PO SCH (09:43)
[2018-07-27] MEDS: IBRUTINIB 420 MG PO SCH (09:43)
[2018-07-27 12:34] VITALS: BP 175/73
--- NOTE | 2018-07-27 18:11 | DIS ---
DATE OF ADMISSION: 07/24/2018 DATE OF DISCHARGE: 07/27/2018 DISCHARGE DIAGNOSES: 1. Sepsis secondary to pneumonia. 2. Lymphoma. 3. Hypertension. CONSULTING PHYSICIAN: Dexter Patterson MD, infectious Disease. HOSPITAL COURSE: Mr. García is an 83-year-old man who was admitted with sepsis after presenting with complaints of a cough productive for sputum and fever. He reported shortness of breath without any chest pain. He underwent laboratory studies which were notable for an elevated white count of 18.5. He had a slightly elevated creatinine of 1.55 compared to 1.50 in March 2018. His CMP was unremarkable. He had a lactic acid of 2.0. He underwent urinalysis which was negative. A chest x-ray was done showing a left lower lobe infiltrate. He was started on antibiotics for pneumonia and treated with IV cefepime and levofloxacin given his immunocompromised state. The patient remained on Imbruvica during his hospitalization. His blood pressure was well controlled. He received IV fluids and was tolerating oral intake without any difficulties. Initially, his IV fluids were discontinued given the fact that he was tolerating food and liquids well by mouth. He was evaluated by Dr. Patterson who felt the Imbruvica was placing him at high-risk for fungal infections including Aspergillus, Pneumocystis, and Cryptococcus neoformans. He advised to continue antibiotic therapy and switched to oral regimen with quinolone or doxycycline plus Omnicef. He also advised checking the Fungitell assay and followup imaging to confirm resolution of findings. If not improved, he advised a bronchoscopy, also advised on Pneumocystis PCR in sputum culture. On day of discharge, given the fact that the patient is clinically improved Dr. Tang has advised to proceed with discharge on oral antibiotics and follow up on testing with his primary care physician. The patient's case was discussed with who advised patient cleared for discharge home to continue p.o. antibiotics and remain off Imbruvica. REVIEW OF SYSTEMS: The patient denies having any fevers, chills, or sweats. No headaches or dizziness. Denies having any nausea or vomiting. Continue tolerating oral intake. No abdominal pain or cramping. Moving his bowels and denies any urinary symptoms. No headaches or dizziness. No palpitations or shortness of breath. Overall, he states he is feeling significantly better and eager to go home. He does report having mild difficulty sleeping and requesting a prescription for Ativan on discharge. PHYSICAL EXAMINATION: GENERAL: The patient appears thin, well-developed and in no acute distress. VITAL SIGNS: Temperature 98, pulse 60, respirations 18, O2 saturation 93% on room air, blood pressure 156/70. HEENT: Normocephalic and atraumatic. Pupils are equal, round, and reactive to light. Sclerae without icterus. Oropharynx is clear. NECK: Supple. LUNGS: Clear to auscultation. No wheezes or rhonchi. ABDOMEN: Soft, nontender, nondistended. Normoactive bowel sounds present. EXTREMITIES: No edema. NEUROLOGIC: Alert and oriented x3. SKIN: Dry. No jaundice. No rash. LABORATORY DATA: White blood count 11.5, significantly improved from 18. Hemoglobin 14, hematocrit 43, platelets 115. Sodium 135, potassium 3.9, chloride 106, anion gap 13, BUN 18, creatinine 1.39, GFR 49. Appears to be at baseline. Lactic acid 2.0, calcium 8.3. LFTs unremarkable. Urinalysis notable for large blood, greater than 50 red blood cells, 4-6 white blood cells. IMAGING DATA: 1. Chest x-ray, 07/24/2018. Nonspecific finding of mildly increased density in the medial basal left lower lobe. 2. Chest CT, 07/26/2018. Tubular bronchiectasis in the lower lobes as well as posterior segment right upper lobe, likely postinfectious in nature with superimposed bibasilar pneumonia or right upper lung pneumonia. No evidence of interstitial lung disease. ACTIVITY: As tolerated. CONDITION: Stable on discharge. DIET: Heart healthy. DISCHARGE MEDICATIONS: 1. The patient given a prescription for Omnicef 300 mg p.o. twice daily, doxycycline 100 mg p.o. twice daily, both for 11 days. 2. For sleep, the patient cannot receive Ativan and instead Dr. Tang has advised melatonin 3 mg p.o. at bedtime. The patient advised to hold his Imbruvica until seen by Dr. Duran. The patient has a followup with Dr. Duran later this month. FOLLOWUP: 1. The patient was to follow up with his primary care physician within one week. Will need to follow up the results of his studies. 2. The patient advised to continue with followup scheduled for Dr. Duran for August 11, 2018. The patient's case was discussed with Dr. Tang, who agrees upon care as described above. Job ID: [id number]
== END 2018-07-27 15:15 | disposition home or self-care (01) | DRG 871 ==
LOC: ERS 14:17 → ONC 18:17
PROVIDERS: ADMIT Internal Medicine; ATTEND Internal Medicine
DX: A41.9 Sepsis, unspecified organism (principal); J18.9 Pneumonia, unspecified organism; C85.90 Non-Hodgkin lymphoma, unspecified, unspecified site; I10 Essential (primary) hypertension; Z92.21 Personal history of antineoplastic chemotherapy; Z90.49 Acquired absence of other specified parts of digestive tract; Z90.89 Acquired absence of other organs
CPT/HCPCS: 36415; 71045; 71250; 80048; 80053; 81003; 81015; 83605; 85025; 87040; 87086; 87449; 87804; 87899; 93005; 94640; 94760; 96365; 96367; J0456; J0692; J0696; J1650; J1956; J7050; J7620

== ENCOUNTER 2018-08-09 13:07 | Outpatient (CLI) | payer MEDICARE, BC ==
--- NOTE | 2018-08-09 13:27 | RAD ---
Chest 2 views HISTORY: Pneumonia. Follow-up. COMPARISON: 07/24/2018. FINDINGS: Cardiac silhouette and pulmonary vasculature are unremarkable. Mediastinum is midline. Vert ically oriented linear scarring apparent at the right posterior lung base. Lungs are otherwise hyperinflated. Mediastinum is midline. Calcified granulomata are consistent with healed granulomatous disease. No lobar consolidation, pleural fluid, or pneumothorax. IMPRESSION: Linear scarring at the right lung base. No active cardiopulmonary abnormalities are demonstrated. Pulmonary hyperinflation.
== END 2018-08-09 13:08 | disposition home or self-care (01) ==
LOC: BICRAD 13:07
PROVIDERS: ATTEND Obstetrics & Gynecology
DX: J18.9 Pneumonia, unspecified organism (principal); J98.4 Other disorders of lung
CPT/HCPCS: 71046

== ENCOUNTER 2019-04-08 09:21 | Outpatient (CLI) | payer BC ==
--- NOTE | 2019-04-08 10:04 | CT ---
CT OF THE ABDOMEN AND PELVIS WITH IV CONTRAST INDICATION: History of lymphoma with intra-abdominal lymph nodes COMPARISON: April 09, 2018 FINDINGS: ABDOMEN: Lung bases: The reticular nodular opacities previously seen are no longer demonstrated. There are are as of subsegmental volume loss involving the left lower lobe. Liver: No focal lesion. Gallbladder: Normal appearing. Pancreas: Normal. Adrenal glands: Normal. Spleen: Normal. Kidneys and ureters: Stable bilateral renal cysts. No hydronephrosis. Vasculature: There are moderate vascular calcifications seen involving the visualized vasculature. Lymph nodes:No pathologically enlarged lymph nodes are evident. Free fluid in abdomen:No free fluid is evident. PELVIS: Small and large bowel: Normal Appendix:Not demonstrated Bladder: Partially decompressed Rectal and perirectal soft tissues:Normal. Reproductive structures: Stable prostate enlargement Free fluid in pelvis: There is partially calcified soft tissue mass involving the left aspect of the pelvis, subjacent to the left external iliac vasculature measuring 4.2 x 1.9 cm were previously it measured 4.4 x 2.6 cm. Mildly prominent left common iliac node is stable measuring 1 cm. Lymphadenopathy pelvis: As above Osseous structures: No acute osseous abnormality. No destructive osteolytic or osteoblastic lesion i s identified. There is scattered degenerative and osteoarthritic changes. Soft tissues:Normal. IMPRESSION: 1. Decrease in size of the partially calcified soft tissue mass within left aspect of the pelvis. Sta ble left common iliac enlarged lymph node measuring 1 cm. No additional enlarged lymph node regions identified. 2. Stable chronic findings as above.
[2019-04-08] MEDS ORDERED: Iopamidol-370 76% 500 ML 1 ML ONE (11:31)
== END 2019-04-08 09:22 | disposition home or self-care (01) ==
LOC: BICCT 09:21
PROVIDERS: ATTEND Internal Medicine Hematology & Oncology
DX: C83.03 Small cell B-cell lymphoma, intra-abdominal lymph nodes (principal); M19.90 Unspecified osteoarthritis, unspecified site
CPT/HCPCS: 74177; 82565; Q9967

== ENCOUNTER 2020-03-29 09:26 | Outpatient (CLI) | payer BC ==
--- NOTE | 2020-03-29 12:30 | CT ---
CT ABDOMEN AND PELVIS PERFORMED WITH CONTRAST ENHANCEMENT: Date: 03/29/2020 HISTORY: Patient has a history of B cell lymphoma, intra-abdominal nodes. This is done as a follow-up. COMPARISON: 04/08/2019 exam. FINDINGS: Some worsened bibasilar interstitial lung change which could just be on the basis of some atelectasis . It does not have any confluent infiltrative process. There are some areas of slight nodularity that are probably just on the basis of worsening atelectasis. The liver, spleen, pancreas, and gallbladder regions all appear unremarkable. Right and left adrenal glands are normal. Right and left kidneys are normal in size. Bilateral renal cysts are again noted with prominent cysts on the right. These are stable. There is no significant pe riaortic or mesenteric lymphadenopathy noted. CT of pelvis was performed with contrast enhancement. Partially calcified density seen deep to the le ft external iliac vessels is slightly less prominent. It has measurements of approximately 14 x 31 mm as compared to 19 x 42 mm on the prior study. The left common iliac lymph node located just below th e bifurcation axial image 55 is subcentimeter in size measuring approximately 7.0 mm. This does appea r to represent a slight decrease as compared to the prior exam. Some small subcentimeter common iliac chain nodes on the right are stable. No new nodes seen. Review of osseous structures show some arthritic changes of the spine. No concerning lytic or blastic bony foci. IMPRESSION: 1. Some worsening bibasilar lung change, probably related to atelectasis. 2. Slight decrease in size of the calcified lesion in the left side of the pelvis deep to the salesperson women's dresses al iliac vessels. Also a very slight decrease in size of the left common iliac node. POS: HAKAN
[2020-03-29] MEDS ORDERED: Iopamidol-370 76% 500 ML 1 ML ONE (12:58)
== END 2020-03-29 09:27 | disposition home or self-care (01) ==
LOC: BICCT 09:26
PROVIDERS: ATTEND Internal Medicine Hematology & Oncology
DX: C83.03 Small cell B-cell lymphoma, intra-abdominal lymph nodes (principal); R19.00 Intra-abdominal and pelvic swelling, mass and lump, unspecified site
CPT/HCPCS: 36415; 74177; 80053; 82248; 82565; 83615; 84100; 84550; Q9967

== ENCOUNTER 2021-03-25 09:12 | Outpatient (CLI) | payer BC ==
[2021-03-25] MEDS ORDERED: Iopamidol-370 76% 500 ML 1 ML ONE (13:19)
== END 2021-03-25 09:13 | disposition home or self-care (01) ==
LOC: BICCT 09:12
PROVIDERS: ATTEND Internal Medicine Hematology & Oncology
DX: C83.03 Small cell B-cell lymphoma, intra-abdominal lymph nodes (principal); R91.8 Other nonspecific abnormal finding of lung field
CPT/HCPCS: 74177; 82565

== ENCOUNTER 2022-03-24 09:37 | Outpatient (CLI) | payer BC | END 2022-03-24 09:38 | disposition home or self-care (01) | LOC: BICCT 09:37 | PROVIDERS: ATTEND Internal Medicine Hematology & Oncology | DX: C83.03 Small cell B-cell lymphoma, intra-abdominal lymph nodes (principal); R11.2 Nausea with vomiting, unspecified; I10 Essential (primary) hypertension; N28.1 Cyst of kidney, acquired; N40.0 Benign prostatic hyperplasia without lower urinary tract symptoms; Z23 Encounter for immunization | CPT/HCPCS: 74177; 82565 ==

== ENCOUNTER 2022-05-30 16:40 | Inpatient (IN) | payer MEDICARE, BC ==
[2022-05-30 17:59] LABS: Hemoglobin 14.5 g/dL (14.0-18.0); Mean Corpuscular HGB CONC 32.6 g/dL (32.0-36.0); Mean Corpuscular Hemoglobin 29.6 pg (27.0-31.0); Mean Corpuscular Volume 90.8 fl (78.0-98.0); Platelet Count 151 10x3/uL (130-400); RBC Distribution Width 14.5 % (11.5-14.5); Red Blood Cell (RBC) Count 4.89 mill/uL (4.70-6.10); White Blood Cell (WBC) Count 33.3 10x3/uL (4.8-10.8)
[2022-05-30] MEDS ORDERED: Cefepime 2 GM VIAL ONE (18:03)
[2022-05-30 18:14] LABS: Burr Cells SLIGHT = 2-5 cells (100X) (0-1/hpf); MDiff Complete? YES; Monocytes 7 % (0-10); Neutrophil 93 % (42-75); Ovalocytes SLIGHT = 2-5 cells (100X) (0-1/hpf); Platelet Morphology Comment Appears Adequate; Polychromasia SLIGHT = 2-3 cells (100X) (0-2/hpf)
[2022-05-30 18:21] LABS: ALT (SGPT) 18 U/L (8-55); AST (SGOT) 24 U/L (5-34); Albumin 3.3 g/dL (3.4-4.8); Alkaline Phosphatase 87 U/L (40-110); Anion Gap 19 mmol/L (10-20); BUN (Urea Nitrogen) 67 mg/dL (8.4-25.7); Bilirubin, Total 1.4 mg/dL (0.2-1.2); Calc. Creatinine Clearance 0 mL/min (70-130); Calcium 8.8 mg/dL (7.8-10.44); Carbon Dioxide 17 mmol/L (23-31); Chloride 97 mmol/L (98-107); Estimated GFR 17; Globulin 2.8 g/dL (2.4-3.5); Glucose 110 mg/dL (83-110); Potassium 4.3 mmol/L (3.5-5.1); Protein, Total 6.1 g/dL (5.8-8.1); Sodium 129 mmol/L (136-145)
[2022-05-30 18:42] LABS: CKMB 6.4 ng/mL (0-6.6)
[2022-05-30] MEDS ORDERED: VANCOMYCIN 1.25 GM/250 ML BAG 1.25 GM in Premix Bag 1 BAG IVPB SCH (18:45)
[2022-05-30 19:44] LABS: INR-International Normal Ratio 1.3; PTT 30.5 sec (22.9-36.1); Prothrombin Time 16.6 sec (12.0-14.7)
[2022-05-30] MEDS ORDERED: Acetaminophen 325 MG TAB PO PRN (20:00)
[2022-05-30] MEDS ORDERED: Ondansetron ODT 4 MG TAB SL PRN (20:00)
[2022-05-30] MEDS ORDERED: Ondansetron PF 4 MG/2 ML Vial IVP PRN (20:00)
[2022-05-30] MEDS ORDERED: Acetaminophen 325 MG TAB ONE (21:26)
[2022-05-30 21:40] LABS: Lactic Acid 1.8 mmol/L (0.5-2.2)
[2022-05-30 23:21] LABS: SARS-CoV-2 NAA Rapid Test DETECTED (NotDetected)
[2022-05-30] MEDS ORDERED: Benzonatate 100 MG CAP PO PRN (23:35)
[2022-05-30] MEDS ORDERED: Acetaminophen 650 MG Suppository PR PRN ×2 (23:35)
[2022-05-30] MEDS ORDERED: Albuterol 200 PUFF (6.7GM INHALER) INH PRN (23:35)
[2022-05-31] MEDS ORDERED: Sodium Chloride 0.9% 1,000 ML IV SCH (05:15)
[2022-05-31] MEDS ORDERED: Pharmacy to Dose REMDESIVIR IVPB PRN (05:42)
[2022-05-31 05:45] LABS: Hemoglobin 12.9 g/dL (14.0-18.0); Mean Corpuscular HGB CONC 33.5 g/dL (32.0-36.0); Mean Corpuscular Hemoglobin 30.3 pg (27.0-31.0); Mean Corpuscular Volume 90.5 fl (78.0-98.0); Mean Platelet Volume 9.5 fL (7.4-10.4); Platelet Count 124 10x3/uL (130-400); RBC Distribution Width 14.3 % (11.5-14.5); Red Blood Cell (RBC) Count 4.27 mill/uL (4.70-6.10); White Blood Cell (WBC) Count 21.7 10x3/uL (4.8-10.8)
[2022-05-31 05:59] LABS: Anion Gap 16 mmol/L (10-20); BUN (Urea Nitrogen) 74 mg/dL (8.4-25.7); Calc. Creatinine Clearance 17 mL/min (70-130); Calcium 8.3 mg/dL (7.8-10.44); Carbon Dioxide 18 mmol/L (23-31); Chloride 103 mmol/L (98-107); Estimated GFR 18; Glucose 90 mg/dL (83-110); Potassium 4.1 mmol/L (3.5-5.1); Sodium 133 mmol/L (136-145)
[2022-05-31 06:14] LABS: Band 25 % (5-11); Lymphocytes 2 % (21-51); MDiff Complete? YES; Monocytes 2 % (0-10); Neutrophil 71 % (42-75)
[2022-05-31] MEDS ORDERED: Azithromycin 500 MG in Sodium Chloride 0.9% 250 ML 250 ML IVPB SCH (07:30)
[2022-05-31] MEDS ORDERED: Albuterol 200 PUFF (6.7GM INHALER) INH PRN ×2 (07:34→14:23)
[2022-05-31] MEDS ORDERED: Guaifenesin DM 100-10/5 ML UDCUP PO PRN (07:34)
[2022-05-31] MEDS ORDERED: Lactated Ringer's 500 ML IV SCH ×2 (07:45→09:30)
[2022-05-31] MEDS ORDERED: Electrolyte Replacement Protocol 1 EACH FS SCH (07:45)
[2022-05-31] MEDS ORDERED: cefTRIAXone\\ROCEPHIN 1 GM in Sodium Chloride 0.9% 100 ML IVPB SCH ×2 (08:00→13:45)
[2022-05-31 08:17] LABS: Magnesium 2.6 mg/dL (1.6-2.6); Phosphorus 5.7 mg/dL (2.3-4.7)
[2022-05-31] MEDS: Ascorbic Acid 500 mg Chewable Tablet PO SCH (08:41)
[2022-05-31] MEDS: Zinc Sulfate 220 MG CAP PO SCH (08:41)
[2022-05-31] MEDS: Cholecalciferol (Vitamin D3) 400 UNITS TAB PO SCH (08:42)
[2022-05-31] MEDS ORDERED: Doxycycline 100 MG in Sodium Chloride 0.9% 100 ML IVPB SCH (09:00)
[2022-05-31] MEDS ORDERED: FLU VACC QS2022-23(65YR UP)/PF 240 MCG/0.7 ML SYRINGE IM ONE (09:00)
[2022-05-31 11:10] LABS: Legionella Urinary Ag Negative (Negative); Strep pneumo Urine Ag POSITIVE (NEGATIVE)
[2022-05-31] MEDS: Apixaban 2.5 MG TAB PO SCH (20:08)
[2022-05-31] MEDS: Metoprolol Tartrate 25 MG TAB PO SCH (20:08)
[2022-05-31] MEDS: Albumin 25% 25 GM/100 ML BOT IVPB SCH (23:58)
[2022-05-31] MEDS: Benzonatate 100 MG CAP PO PRN (23:58)
[2022-06-01 04:09] LABS: Bacteria/HPF None Seen HPF (None Seen); Bilirubin Negative (Negative); Blood, Urine Trace (Negative); Clarity Clear (Clear); Glucose, Urine (Dipstick) Normal (Negative); Ketone, Urine Negative (Negative); Leukocyte Negative Leu/uL (Negative); Nitrite Negative (Negative); Protein, Urine (Dipstick) 30 mg/dL (Neg-Trace); Specific Gravity, Urine 1.013 (1.002-1.036); Squamous Epithelial 0-3 HPF (0-3); Urobilinogen Normal mg/dL (Less than 2); WBC/HPF 0-3 HPF (0-3)
[2022-06-01] MEDS: Albumin 25% 25 GM/100 ML BOT IVPB SCH ×3 (05:24→18:17)
[2022-06-01 08:26] LABS: ALT (SGPT) 16 U/L (8-55); AST (SGOT) 19 U/L (5-34); Alkaline Phosphatase 63 U/L (40-110); Anion Gap 20 mmol/L (10-20); BUN (Urea Nitrogen) 69 mg/dL (8.4-25.7); Bilirubin, Total 0.9 mg/dL (0.2-1.2); Calc. Creatinine Clearance 21 mL/min (70-130); Calcium 8.2 mg/dL (7.8-10.44); Carbon Dioxide 10 mmol/L (23-31); Chloride 110 mmol/L (98-107); Estimated GFR 23; Globulin 2.1 g/dL (2.4-3.5); Glucose 87 mg/dL (83-110); Magnesium 2.4 mg/dL (1.6-2.6); Phosphorus 3.4 mg/dL (2.3-4.7); Potassium 3.7 mmol/L (3.5-5.1); Protein, Total 5.1 g/dL (5.8-8.1); Sodium 136 mmol/L (136-145)
[2022-06-01] MEDS: cefTRIAXone\\ROCEPHIN 2 GM in Sodium Chloride 0.9% 100 ML IVPB SCH (08:39)
[2022-06-01] MEDS: Apixaban 2.5 MG TAB PO SCH ×2 (08:40→21:50)
[2022-06-01] MEDS: Metoprolol Tartrate 25 MG TAB PO SCH ×2 (08:40→21:50)
[2022-06-01] MEDS: Ascorbic Acid 500 mg Chewable Tablet PO SCH (08:40)
[2022-06-01] MEDS: Zinc Sulfate 220 MG CAP PO SCH (08:41)
[2022-06-01] MEDS: Cholecalciferol (Vitamin D3) 400 UNITS TAB PO SCH (08:56)
[2022-06-01 09:08] LABS: Band 17 % (5-11); Burr Cells SLIGHT = 2-5 cells (100X) (0-1/hpf); Hemoglobin 11.3 g/dL (14.0-18.0); Lymphocytes 3 % (21-51); MDiff Complete? YES; Mean Corpuscular HGB CONC 33.5 g/dL (32.0-36.0); Mean Corpuscular Hemoglobin 30.1 pg (27.0-31.0); Mean Corpuscular Volume 89.9 fl (78.0-98.0); Mean Platelet Volume 9.6 fL (7.4-10.4); Monocytes 3 % (0-10); Neutrophil 77 % (42-75); Platelet Count 110 10x3/uL (130-400); Platelet Morphology Comment Appears Decreased; Polychromasia SLIGHT = 2-3 cells (100X) (0-2/hpf); RBC Distribution Width 14.1 % (11.5-14.5); Red Blood Cell (RBC) Count 3.75 mill/uL (4.70-6.10); White Blood Cell (WBC) Count 15.3 10x3/uL (4.8-10.8)
[2022-06-01] MEDS: Sodium Bicarbonate Tab 325 MG TAB PO SCH ×2 (16:22→21:50)
[2022-06-02 05:08] LABS: Hemoglobin 11.7 g/dL (14.0-18.0); Mean Corpuscular Hemoglobin 30.7 pg (27.0-31.0); Mean Corpuscular Volume 90.4 fl (78.0-98.0); Mean Platelet Volume 9.1 fL (7.4-10.4); Platelet Count 133 10x3/uL (130-400); RBC Distribution Width 14.5 % (11.5-14.5); White Blood Cell (WBC) Count 14.4 10x3/uL (4.8-10.8)
[2022-06-02 05:26] LABS: Band 4 % (5-11); Lymphocytes 7 % (21-51); MDiff Complete? YES; Monocytes 8 % (0-10); Myelocyte 2 % (0-0); Neutrophil 79 % (42-75)
[2022-06-02 05:30] LABS: ALT (SGPT) 15 U/L (8-55); AST (SGOT) 17 U/L (5-34); Albumin 3.3 g/dL (3.4-4.8); Alkaline Phosphatase 68 U/L (40-110); Anion Gap 14 mmol/L (10-20); BUN (Urea Nitrogen) 57 mg/dL (8.4-25.7); Bilirubin, Total 1.1 mg/dL (0.2-1.2); Calc. Creatinine Clearance 28 mL/min (70-130); Calcium 8.3 mg/dL (7.8-10.44); Carbon Dioxide 18 mmol/L (23-31); Chloride 108 mmol/L (98-107); Estimated GFR 32; Glucose 91 mg/dL (83-110); Potassium 3.5 mmol/L (3.5-5.1); Protein, Total 5.3 g/dL (5.8-8.1); Sodium 136 mmol/L (136-145)
[2022-06-02] MEDS: cefTRIAXone\\ROCEPHIN 2 GM in Sodium Chloride 0.9% 100 ML IVPB SCH (09:13)
[2022-06-02] MEDS: Apixaban 2.5 MG TAB PO SCH ×2 (09:13→20:36)
[2022-06-02] MEDS: Sodium Bicarbonate Tab 325 MG TAB PO SCH ×3 (09:13→20:36)
[2022-06-02] MEDS: Ascorbic Acid 500 mg Chewable Tablet PO SCH (09:13)
[2022-06-02] MEDS: Zinc Sulfate 220 MG CAP PO SCH (09:13)
[2022-06-02] MEDS: Cholecalciferol (Vitamin D3) 400 UNITS TAB PO SCH (09:14)
[2022-06-02] MEDS: Metoprolol Tartrate 25 MG TAB PO SCH ×2 (09:14→20:36)
[2022-06-02] MEDS: Albumin 25% 25 GM/100 ML BOT IVPB SCH ×2 (12:55→17:37)
[2022-06-02] MEDS: Benzonatate 100 MG CAP PO PRN (20:36)
[2022-06-03] MEDS: Albumin 25% 25 GM/100 ML BOT IVPB SCH ×2 (00:18→06:03)
[2022-06-03 05:48] LABS: Hemoglobin 10.2 g/dL (14.0-18.0); Mean Corpuscular HGB CONC 33.2 g/dL (32.0-36.0); Mean Corpuscular Hemoglobin 29.7 pg (27.0-31.0); Mean Corpuscular Volume 89.5 fl (78.0-98.0); Mean Platelet Volume 8.8 fL (7.4-10.4); Platelet Count 116 10x3/uL (130-400); RBC Distribution Width 14.4 % (11.5-14.5); Red Blood Cell (RBC) Count 3.43 mill/uL (4.70-6.10); White Blood Cell (WBC) Count 13.8 10x3/uL (4.8-10.8)
[2022-06-03 06:12] LABS: ALT (SGPT) 11 U/L (8-55); AST (SGOT) 13 U/L (5-34); Albumin 3.8 g/dL (3.4-4.8); Alkaline Phosphatase 58 U/L (40-110); Anion Gap 12 mmol/L (10-20); BUN (Urea Nitrogen) 42 mg/dL (8.4-25.7); Bilirubin, Total 1.2 mg/dL (0.2-1.2); Calc. Creatinine Clearance 36 mL/min (70-130); Calcium 8.5 mg/dL (7.8-10.44); Carbon Dioxide 23 mmol/L (23-31); Chloride 105 mmol/L (98-107); Estimated GFR 43; Globulin 1.7 g/dL (2.4-3.5); Glucose 94 mg/dL (83-110); Potassium 3.4 mmol/L (3.5-5.1); Protein, Total 5.5 g/dL (5.8-8.1); Sodium 137 mmol/L (136-145)
[2022-06-03 06:27] LABS: Band 2 % (5-11); Eosinophils 1 % (0-10); Lymphocytes 7 % (21-51); MDiff Complete? YES; Monocytes 4 % (0-10); Neutrophil 86 % (42-75); Platelet Morphology Comment Appears Decreased; RBC Morphology Normal
[2022-06-03] MEDS: cefTRIAXone\\ROCEPHIN 2 GM in Sodium Chloride 0.9% 100 ML IVPB SCH (10:00)
[2022-06-03] MEDS: Ascorbic Acid 500 mg Chewable Tablet PO SCH (10:01)
[2022-06-03] MEDS: Zinc Sulfate 220 MG CAP PO SCH (10:01)
[2022-06-03] MEDS: Apixaban 2.5 MG TAB PO SCH ×2 (10:01→20:20)
[2022-06-03] MEDS: Cholecalciferol (Vitamin D3) 400 UNITS TAB PO SCH (10:01)
[2022-06-03] MEDS: Metoprolol Tartrate 25 MG TAB PO SCH ×2 (10:02→20:19)
[2022-06-03] MEDS: Sodium Bicarbonate Tab 325 MG TAB PO SCH ×3 (10:02→20:20)
[2022-06-03] MEDS: Amlodipine 5 MG TAB PO SCH (10:06)
[2022-06-03] MEDS ORDERED: Metoprolol Tartrate 25 MG TAB PO SCH (12:45)
[2022-06-03] MEDS ORDERED: Potassium Chloride 20 MEQ TAB PO SCH (12:45)
[2022-06-03] MEDS ORDERED: Carvedilol 3.125 MG TAB PO SCH (17:00)
[2022-06-04] MEDS ORDERED: Metoprolol Tartrate 5 MG/5 ML VIAL IVP SCH (04:00)
[2022-06-04] MEDS ORDERED: Melatonin 3 MG TAB PO PRN (04:01)
[2022-06-04 06:02] LABS: Hemoglobin 10.8 g/dL (14.0-18.0); Mean Corpuscular HGB CONC 33.3 g/dL (32.0-36.0); Mean Corpuscular Hemoglobin 29.9 pg (27.0-31.0); Mean Corpuscular Volume 89.9 fl (78.0-98.0); Mean Platelet Volume 8.7 fL (7.4-10.4); Platelet Count 143 10x3/uL (130-400); RBC Distribution Width 14.6 % (11.5-14.5); White Blood Cell (WBC) Count 20.3 10x3/uL (4.8-10.8)
[2022-06-04 06:20] LABS: ALT (SGPT) 13 U/L (8-55); AST (SGOT) 13 U/L (5-34); Albumin 3.2 g/dL (3.4-4.8); Alkaline Phosphatase 59 U/L (40-110); Anion Gap 13 mmol/L (10-20); BUN (Urea Nitrogen) 34 mg/dL (8.4-25.7); Bilirubin, Total 1.1 mg/dL (0.2-1.2); Calc. Creatinine Clearance 41 mL/min (70-130); Calcium 8.4 mg/dL (7.8-10.44); Carbon Dioxide 21 mmol/L (23-31); Chloride 106 mmol/L (98-107); Estimated GFR 49; Globulin 1.8 g/dL (2.4-3.5); Glucose 112 mg/dL (83-110); Potassium 3.7 mmol/L (3.5-5.1); Sodium 136 mmol/L (136-145)
[2022-06-04 06:24] LABS: Band 6 % (5-11); Eosinophils 1 % (0-10); Lymphocytes 9 % (21-51); MDiff Complete? YES; Monocytes 4 % (0-10); Myelocyte 2 % (0-0); Neutrophil 78 % (42-75)
[2022-06-04] MEDS: Zinc Sulfate 220 MG CAP PO SCH (09:32)
[2022-06-04] MEDS: Apixaban 2.5 MG TAB PO SCH ×2 (09:32→20:08)
[2022-06-04] MEDS: Amlodipine 5 MG TAB PO SCH (09:32)
[2022-06-04] MEDS: Metoprolol Tartrate 25 MG TAB PO SCH ×2 (09:32→20:08)
[2022-06-04] MEDS: Cholecalciferol (Vitamin D3) 400 UNITS TAB PO SCH (09:32)
[2022-06-04] MEDS: Ascorbic Acid 500 mg Chewable Tablet PO SCH (09:32)
[2022-06-04] MEDS: Sodium Bicarbonate Tab 325 MG TAB PO SCH ×3 (09:33→20:09)
[2022-06-04] MEDS: cefTRIAXone\\ROCEPHIN 2 GM in Sodium Chloride 0.9% 100 ML IVPB SCH (09:33)
[2022-06-04] MEDS ORDERED: Loperamide HCl 2 MG CAP PO SCH (10:15)
[2022-06-04] MEDS ORDERED: Diltiazem 125 MG in Sodium Chloride 0.9% 100 ML IVPB SCH (14:15)
[2022-06-04] MEDS ORDERED: Digoxin 0.5 MG/2 ML AMP SLOW IVP SCH ×2 (14:15→18:30)
[2022-06-04] MEDS: Temazepam 15 MG CAP PO PRN (20:09)
[2022-06-05 06:05] LABS: ALT (SGPT) 13 U/L (8-55); AST (SGOT) 11 U/L (5-34); Albumin 3.2 g/dL (3.4-4.8); Alkaline Phosphatase 60 U/L (40-110); Anion Gap 13 mmol/L (10-20); BUN (Urea Nitrogen) 27 mg/dL (8.4-25.7); Calc. Creatinine Clearance 44 mL/min (70-130); Calcium 8.4 mg/dL (7.8-10.44); Carbon Dioxide 23 mmol/L (23-31); Chloride 107 mmol/L (98-107); Estimated GFR 53; Globulin 1.8 g/dL (2.4-3.5); Glucose 103 mg/dL (83-110); Potassium 3.8 mmol/L (3.5-5.1); Sodium 139 mmol/L (136-145)
[2022-06-05 06:44] LABS: Hemoglobin 11.9 g/dL (14.0-18.0); Mean Corpuscular Hemoglobin 30.2 pg (27.0-31.0); Mean Corpuscular Volume 91.5 fl (78.0-98.0); Mean Platelet Volume 8.3 fL (7.4-10.4); Platelet Count 173 10x3/uL (130-400); RBC Distribution Width 14.7 % (11.5-14.5); Red Blood Cell (RBC) Count 3.93 mill/uL (4.70-6.10); White Blood Cell (WBC) Count 21.6 10x3/uL (4.8-10.8)
[2022-06-05 08:29] LABS: Band 2 % (5-11); Lymphocytes 7 % (21-51); MDiff Complete? YES; Metamyelocyte 1 % (0-0); Monocytes 3 % (0-10); Neutrophil 82 % (42-75); Platelet Morphology Comment Appears Adequate; Polychromasia SLIGHT = 2-3 cells (100X) (0-2/hpf); Reactive Lymphocytes 5 % (0-10)
[2022-06-05] MEDS: Sodium Bicarbonate Tab 325 MG TAB PO SCH ×3 (08:37→20:21)
[2022-06-05] MEDS: Ascorbic Acid 500 mg Chewable Tablet PO SCH (08:38)
[2022-06-05] MEDS: Cholecalciferol (Vitamin D3) 400 UNITS TAB PO SCH (08:38)
[2022-06-05] MEDS: Apixaban 2.5 MG TAB PO SCH ×2 (08:38→20:23)
[2022-06-05] MEDS: Metoprolol Tartrate 25 MG TAB PO SCH ×2 (08:38→20:22)
[2022-06-05] MEDS: Zinc Sulfate 220 MG CAP PO SCH (08:38)
[2022-06-05] MEDS: cefTRIAXone\\ROCEPHIN 2 GM in Sodium Chloride 0.9% 100 ML IVPB SCH (08:38)
[2022-06-05] MEDS: Loperamide HCl 2 MG CAP PO PRN ×2 (08:41→20:22)
[2022-06-05] MEDS ORDERED: Albuterol 200 PUFF (6.7GM INHALER) INH PRN (09:37)
[2022-06-05 13:12] VITALS: BMI 22.1
[2022-06-05] MEDS: Temazepam 15 MG CAP PO PRN (20:21)
[2022-06-05] MEDS: Benzonatate 100 MG CAP PO PRN (20:22)
[2022-06-05] MEDS: Lisinopril 20 MG TAB PO SCH (20:23)
[2022-06-06 06:48] LABS: ALT (SGPT) 13 U/L (8-55); AST (SGOT) 11 U/L (5-34); Albumin 2.9 g/dL (3.4-4.8); Alkaline Phosphatase 60 U/L (40-110); Anion Gap 13 mmol/L (10-20); BUN (Urea Nitrogen) 35 mg/dL (8.4-25.7); Bilirubin, Total 0.9 mg/dL (0.2-1.2); Calc. Creatinine Clearance 41 mL/min (70-130); Calcium 8.4 mg/dL (7.8-10.44); Carbon Dioxide 25 mmol/L (23-31); Chloride 105 mmol/L (98-107); Estimated GFR 49; Globulin 1.8 g/dL (2.4-3.5); Glucose 106 mg/dL (83-110); Magnesium 1.9 mg/dL (1.6-2.6); Protein, Total 4.7 g/dL (5.8-8.1); Sodium 139 mmol/L (136-145)
[2022-06-06 06:49] LABS: Hemoglobin 10.5 g/dL (14.0-18.0); Mean Corpuscular HGB CONC 32.7 g/dL (32.0-36.0); Mean Corpuscular Hemoglobin 30.1 pg (27.0-31.0); Mean Corpuscular Volume 92.1 fl (78.0-98.0); Mean Platelet Volume 8.5 fL (7.4-10.4); Platelet Count 170 10x3/uL (130-400); RBC Distribution Width 14.8 % (11.5-14.5); Red Blood Cell (RBC) Count 3.49 mill/uL (4.70-6.10); White Blood Cell (WBC) Count 19.8 10x3/uL (4.8-10.8)
[2022-06-06 06:50] LABS: Anisocytosis SLIGHT = 6-15 cells (100X) (0-5/hpf); Band 1 % (5-11); Eosinophils 1 % (0-10); Lymphocytes 10 % (21-51); MDiff Complete? YES; Metamyelocyte 1 % (0-0); Monocytes 6 % (0-10); Neutrophil 81 % (42-75); Platelet Morphology Comment Appears Adequate
[2022-06-06] MEDS ORDERED: Magnesium 2 GM/50 ML(in water) 2 GM in Premix Bag 1 BAG IVPB SCH (08:45)
[2022-06-06] MEDS ORDERED: Dexamethasone 4 mg/ml Vial SLOW IVP SCH (09:00)
[2022-06-06] MEDS: Apixaban 2.5 MG TAB PO SCH (09:22)
[2022-06-06] MEDS: Ascorbic Acid 500 mg Chewable Tablet PO SCH (09:22)
[2022-06-06] MEDS: Sodium Bicarbonate Tab 325 MG TAB PO SCH ×2 (09:22→15:04)
[2022-06-06] MEDS: Metoprolol Tartrate 25 MG TAB PO SCH (09:22)
[2022-06-06] MEDS: cefTRIAXone\\ROCEPHIN 2 GM in Sodium Chloride 0.9% 100 ML IVPB SCH (09:22)
[2022-06-06] MEDS: Dronedarone HCl 400 MG TAB PO SCH ×2 (09:22→17:02)
[2022-06-06] MEDS: Cholecalciferol (Vitamin D3) 400 UNITS TAB PO SCH (09:22)
[2022-06-06] MEDS: Loperamide HCl 2 MG CAP PO PRN (09:23)
[2022-06-06] MEDS: Zinc Sulfate 220 MG CAP PO SCH (09:23)
[2022-06-06] MEDS: Lisinopril 20 MG TAB PO SCH (09:24)
[2022-06-06] MEDS ORDERED: Saccharomyces boulardii 250 MG CAP PO SCH (11:00)
[2022-06-06 15:53] VITALS: TEMP 98
[2022-06-06] MEDS ORDERED: Amlodipine 10 MG TAB PO SCH (16:00)
[2022-06-06 17:02] VITALS: BP 165/73
[2022-06-07] MEDS ORDERED: Amlodipine 10 MG TAB PO SCH (09:00)
[2022-06-07] MEDS ORDERED: Saccharomyces boulardii 250 MG CAP PO SCH (09:00)
== END 2022-06-06 18:28 | DRG 871 ==
LOC: ERS 16:40 → ERHOLD 19:33 → NEURO 22:56
PROVIDERS: ADMIT Internal Medicine; ATTEND Family Medicine
PROC: 8E0ZXY6 Isolation (ICD-10-PCS; principal; 2022-05-30)
PROC: 3E03329 Introduction of Other Anti-infective into Peripheral Vein, Percutaneous Approach (ICD-10-PCS; 2022-05-30)
DX: A40.3 Sepsis due to Streptococcus pneumoniae (principal); J12.82 Pneumonia due to coronavirus disease 2019; U07.1 COVID-19; J96.01 Acute respiratory failure with hypoxia; J15.4 Pneumonia due to other streptococci; R65.20 Severe sepsis without septic shock; N17.9 Acute kidney failure, unspecified; E87.1 Hypo-osmolality and hyponatremia; C85.10 Unspecified B-cell lymphoma, unspecified site; K52.1 Toxic gastroenteritis and colitis; N39.0 Urinary tract infection, site not specified; N18.9 Chronic kidney disease, unspecified; T36.95XA Adverse effect of unspecified systemic antibiotic, initial encounter; R91.1 Solitary pulmonary nodule; L89.321 Pressure ulcer of left buttock, stage 1; L89.312 Pressure ulcer of right buttock, stage 2; G93.89 Other specified disorders of brain; E86.0 Dehydration; I48.0 Paroxysmal atrial fibrillation; R77.8 Other specified abnormalities of plasma proteins; I12.9 Hypertensive chronic kidney disease with stage 1 through stage 4 chronic kidney disease, or unspecified chronic kidney disease; Z79.899 Other long term (current) drug therapy; Z90.89 Acquired absence of other organs; Z90.49 Acquired absence of other specified parts of digestive tract; G47.00 Insomnia, unspecified; R53.81 Other malaise
CPT/HCPCS: 36415; 71045; 76770; 80048; 80053; 81001; 82553; 83605; 83735; 83880; 84100; 84145; 84443; 84484; 85025; 85610; 85730; 87040; 87077; 87081; 87149; 87186; 87324; 87449; 87899; 93005; 93306; 93970; 96361; 96365; 96372; 96375; 97139; J0692; J0696; J1100; J1160; J1650; J3370; J3475; J3490; J7050; J7120; P9047

== ENCOUNTER 2022-08-16 11:17 | Inpatient (IN) | payer MEDICARE, BC ==
[2022-08-16 11:52] LABS: #Eosinphils 0.1 thou/uL (0.0-0.7); #Lymphocytes 2.4 thou/uL (1.20-3.40); #Neutrophils 9.1 thou/uL (1.40-6.50); %Basophils 0.1 % (0.0-1.0); %Lymphocytes 18.8 % (21.0-51.0); %Monocytes 8.1 % (0.0-10.0); Hemoglobin 13.1 g/dL (14.0-18.0); Mean Corpuscular HGB CONC 32.5 g/dL (32.0-36.0); Mean Corpuscular Hemoglobin 27.1 pg (27.0-31.0); Mean Corpuscular Volume 83.6 fl (78.0-98.0); Mean Platelet Volume 6.6 fL (7.4-10.4); Platelet Count 256 10x3/uL (130-400); RBC Distribution Width 15.4 % (11.5-14.5); Red Blood Cell (RBC) Count 4.82 mill/uL (4.70-6.10); White Blood Cell (WBC) Count 12.7 10x3/uL (4.8-10.8)
[2022-08-16 12:15] LABS: ALT (SGPT) 7 U/L (8-55); AST (SGOT) 10 U/L (5-34); Albumin 3.7 g/dL (3.4-4.8); Alkaline Phosphatase 68 U/L (40-110); Anion Gap 18 mmol/L (10-20); BUN (Urea Nitrogen) 26 mg/dL (8.4-25.7); Bilirubin, Total 0.9 mg/dL (0.2-1.2); Calc. Creatinine Clearance 0 mL/min (70-130); Calcium 9.3 mg/dL (7.8-10.44); Carbon Dioxide 22 mmol/L (23-31); Chloride 102 mmol/L (98-107); Estimated GFR 42; Globulin 2.7 g/dL (2.4-3.5); Glucose 95 mg/dL (83-110); Magnesium 2.3 mg/dL (1.6-2.6); Potassium 4.7 mmol/L (3.5-5.1); Protein, Total 6.4 g/dL (5.8-8.1); Sodium 137 mmol/L (136-145)
[2022-08-16 13:17] LABS: CKMB 1.5 ng/mL (0-6.6)
[2022-08-16] MEDS ORDERED: Ondansetron PF 4 MG/2 ML Vial IVP PRN (14:25)
[2022-08-16] MEDS ORDERED: Aspirin Chewable 81 MG TAB ONE (14:27)
[2022-08-16] MEDS ORDERED: cefTRIAXone (ROCEPHIN) 2 GM VIAL ONE (14:47)
[2022-08-16 14:55] LABS: SARS-CoV-2 NAA Rapid Test Not Detected (NotDetected)
[2022-08-16 15:03] LABS: Troponin I 0.041 ng/mL (< 0.028)
[2022-08-16] MEDS ORDERED: Loperamide HCl 2 MG CAP PO PRN (15:39)
[2022-08-16] MEDS ORDERED: Azithromycin 500 MG VIAL ONE (17:07)
[2022-08-16 18:45] LABS: Troponin I 0.035 ng/mL (< 0.028)
[2022-08-16 20:01] VITALS: BMI 25.2
[2022-08-16] MEDS ORDERED: Vancomycin 1.5 GRAM/300 ML BAG 1.5 GM in Premix Bag 1 BAG IVPB SCH (21:00)
[2022-08-16] MEDS: Senokot S 8.6-50 MG TAB PO SCH (21:43)
[2022-08-16] MEDS: Metoprolol Tartrate 25 MG TAB PO SCH (21:43)
[2022-08-16] MEDS: Melatonin 3 MG TAB PO PRN (21:43)
[2022-08-16] MEDS: Cefepime 1 GM in Sodium Chloride 0.9% 100 ML IVPB SCH (21:44)
[2022-08-16] MEDS: Lisinopril 20 MG TAB PO SCH (21:44)
[2022-08-16] MEDS: Apixaban 2.5 MG TAB PO SCH (21:44)
[2022-08-16] MEDS: Dronedarone HCl 400 MG TAB PO SCH (22:08)
[2022-08-16 22:50] LABS: Legionella Urinary Ag Negative (Negative)
[2022-08-16 22:51] LABS: Strep pneumo Urine Ag NEGATIVE (NEGATIVE)
[2022-08-17] MEDS: Ipratropium/Albuterol 3 ML NEB NEB SCH ×5 (00:20→19:10)
[2022-08-17 07:21] LABS: #Eosinphils 0.4 thou/uL (0.0-0.7); #Lymphocytes 1.6 thou/uL (1.20-3.40); #Monocytes 0.9 thou/uL (0.11-0.59); %Basophils 0.4 % (0.0-1.0); %Eosinophils 4.3 % (0.0-10.0); %Lymphocytes 15.7 % (21.0-51.0); %Monocytes 9.3 % (0.0-10.0); %Neutrophils 70.3 % (42.0-75.0); Hemoglobin 10.7 g/dL (14.0-18.0); Mean Corpuscular HGB CONC 32.4 g/dL (32.0-36.0); Mean Corpuscular Hemoglobin 27.1 pg (27.0-31.0); Mean Corpuscular Volume 83.6 fl (78.0-98.0); Mean Platelet Volume 6.2 fL (7.4-10.4); Platelet Count 213 10x3/uL (130-400); RBC Distribution Width 15.1 % (11.5-14.5); Red Blood Cell (RBC) Count 3.93 mill/uL (4.70-6.10)
[2022-08-17 07:52] LABS: Anion Gap 13 mmol/L (10-20); BUN (Urea Nitrogen) 22 mg/dL (8.4-25.7); Calc. Creatinine Clearance 40 mL/min (70-130); Calcium 8.4 mg/dL (7.8-10.44); Carbon Dioxide 24 mmol/L (23-31); Chloride 105 mmol/L (98-107); Estimated GFR 51; Glucose 91 mg/dL (83-110); Sodium 138 mmol/L (136-145)
[2022-08-17] MEDS: Cefepime 1 GM in Sodium Chloride 0.9% 100 ML IVPB SCH ×2 (08:02→20:14)
[2022-08-17] MEDS: Metoprolol Tartrate 25 MG TAB PO SCH ×2 (08:03→20:13)
[2022-08-17] MEDS: Hydrochlorothiazide 25 MG TAB PO SCH (08:04)
[2022-08-17] MEDS: Apixaban 2.5 MG TAB PO SCH ×2 (08:04→20:14)
[2022-08-17] MEDS: Saccharomyces boulardii 250 MG CAP PO SCH (08:04)
[2022-08-17] MEDS: Zinc Sulfate 220 MG CAP PO SCH (08:04)
[2022-08-17] MEDS: Cholecalciferol (Vitamin D3) 400 UNITS TAB PO SCH (08:04)
[2022-08-17] MEDS: Lisinopril 20 MG TAB PO SCH ×2 (08:04→20:13)
[2022-08-17] MEDS: Senokot S 8.6-50 MG TAB PO SCH ×2 (08:04→20:14)
[2022-08-17] MEDS: Dronedarone HCl 400 MG TAB PO SCH ×2 (08:12→17:51)
[2022-08-17] MEDS: hydrALAZINE 20 MG/ML VIAL SLOW IVP PRN ×3 (10:55→19:22)
[2022-08-17] MEDS ORDERED: Metoprolol Tartrate 25 MG TAB PO SCH (11:15)
[2022-08-17] MEDS ORDERED: Labetalol HCl 100 MG/20 ML VIAL SLOW IVP PRN (13:46)
[2022-08-17] MEDS ORDERED: Vancomycin HCl 750 MG in Sodium Chloride 0.9% 250 ML 250 ML IVPB SCH (21:00)
[2022-08-17] MEDS: Melatonin 3 MG TAB PO PRN (22:49)
[2022-08-18] MEDS: Dronedarone HCl 400 MG TAB PO SCH (08:43)
[2022-08-18] MEDS: Ipratropium/Albuterol 3 ML NEB NEB SCH ×2 (09:46→09:59)
[2022-08-18] MEDS: Cefepime 1 GM in Sodium Chloride 0.9% 100 ML IVPB SCH ×2 (09:56→19:37)
[2022-08-18] MEDS: Metoprolol Tartrate 25 MG TAB PO SCH ×2 (09:57→19:35)
[2022-08-18] MEDS: Lisinopril 20 MG TAB PO SCH ×2 (09:57→19:35)
[2022-08-18] MEDS: Hydrochlorothiazide 25 MG TAB PO SCH (09:57)
[2022-08-18] MEDS: Cholecalciferol (Vitamin D3) 400 UNITS TAB PO SCH (09:57)
[2022-08-18] MEDS: Senokot S 8.6-50 MG TAB PO SCH ×2 (09:58→19:35)
[2022-08-18] MEDS: Zinc Sulfate 220 MG CAP PO SCH (09:58)
[2022-08-18] MEDS: Apixaban 2.5 MG TAB PO SCH ×2 (09:58→19:36)
[2022-08-18] MEDS: Saccharomyces boulardii 250 MG CAP PO SCH (09:58)
[2022-08-18] MEDS ORDERED: Albuterol 200 PUFF (6.7GM INHALER) INH PRN (10:33)
[2022-08-18] MEDS: Melatonin 3 MG TAB PO PRN (19:35)
[2022-08-18] MEDS: Guaifenesin DM 100-10/5 ML UDCUP PO PRN (19:36)
[2022-08-18] MEDS: hydrALAZINE 20 MG/ML VIAL SLOW IVP PRN (19:36)
[2022-08-18 20:11] LABS: Vancomycin, Trough 9.6 ug/mL
[2022-08-18] MEDS: VANCOMYCIN 1.25 GM/250 ML BAG 1.25 GM in Premix Bag 1 BAG IVPB SCH (21:17)
[2022-08-18] MEDS: traZODone HCl 50 MG TAB PO PRN (21:17)
[2022-08-19 03:31] LABS: #Eosinphils 0.5 thou/uL (0.0-0.7); #Lymphocytes 1.8 thou/uL (1.20-3.40); #Neutrophils 7.1 thou/uL (1.40-6.50); %Basophils 0.2 % (0.0-1.0); %Eosinophils 4.9 % (0.0-10.0); %Lymphocytes 17.3 % (21.0-51.0); %Monocytes 9.5 % (0.0-10.0); %Neutrophils 68.2 % (42.0-75.0); Mean Corpuscular HGB CONC 33.1 g/dL (32.0-36.0); Mean Corpuscular Hemoglobin 26.9 pg (27.0-31.0); Mean Corpuscular Volume 81.3 fl (78.0-98.0); Mean Platelet Volume 6.6 fL (7.4-10.4); Platelet Count 200 10x3/uL (130-400); RBC Distribution Width 15.5 % (11.5-14.5); Red Blood Cell (RBC) Count 4.09 mill/uL (4.70-6.10); White Blood Cell (WBC) Count 10.4 10x3/uL (4.8-10.8)
[2022-08-19 03:57] LABS: Sodium 136 mmol/L (136-145)
[2022-08-19 03:58] LABS: Anion Gap 16 mmol/L (10-20); BUN (Urea Nitrogen) 23 mg/dL (8.4-25.7); Calc. Creatinine Clearance 48 mL/min (70-130); Calcium 8.3 mg/dL (7.8-10.44); Carbon Dioxide 20 mmol/L (23-31); Chloride 104 mmol/L (98-107); Estimated GFR 63; Glucose 102 mg/dL (83-110); Potassium 3.9 mmol/L (3.5-5.1)
[2022-08-19] MEDS: Apixaban 2.5 MG TAB PO SCH ×2 (08:31→20:56)
[2022-08-19] MEDS: Zinc Sulfate 220 MG CAP PO SCH (08:31)
[2022-08-19] MEDS: Hydrochlorothiazide 25 MG TAB PO SCH (08:31)
[2022-08-19] MEDS: Metoprolol Tartrate 25 MG TAB PO SCH ×2 (08:31→20:56)
[2022-08-19] MEDS: Saccharomyces boulardii 250 MG CAP PO SCH (08:31)
[2022-08-19] MEDS: Senokot S 8.6-50 MG TAB PO SCH ×2 (08:31→20:56)
[2022-08-19] MEDS: Lisinopril 20 MG TAB PO SCH ×2 (08:31→20:56)
[2022-08-19] MEDS: Cefepime 1 GM in Sodium Chloride 0.9% 100 ML IVPB SCH ×2 (08:32→20:55)
[2022-08-19] MEDS: Cholecalciferol (Vitamin D3) 400 UNITS TAB PO SCH (08:32)
[2022-08-19] MEDS: Acetaminophen 325 MG TAB PO PRN (10:52)
[2022-08-19] MEDS: VANCOMYCIN 1.25 GM/250 ML BAG 1.25 GM in Premix Bag 1 BAG IVPB SCH (22:17)
[2022-08-19] MEDS: traZODone HCl 50 MG TAB PO PRN (22:23)
[2022-08-20 06:47] LABS: #Eosinphils 0.5 thou/uL (0.0-0.7); #Lymphocytes 1.6 thou/uL (1.20-3.40); #Monocytes 0.8 thou/uL (0.11-0.59); #Neutrophils 5.5 thou/uL (1.40-6.50); %Basophils 0.1 % (0.0-1.0); %Eosinophils 6.3 % (0.0-10.0); %Lymphocytes 19.2 % (21.0-51.0); %Monocytes 9.8 % (0.0-10.0); %Neutrophils 64.5 % (42.0-75.0); Hemoglobin 10.9 g/dL (14.0-18.0); Mean Corpuscular HGB CONC 32.7 g/dL (32.0-36.0); Mean Corpuscular Volume 82.6 fl (78.0-98.0); Mean Platelet Volume 6.8 fL (7.4-10.4); Platelet Count 213 10x3/uL (130-400); RBC Distribution Width 15.3 % (11.5-14.5); Red Blood Cell (RBC) Count 4.05 mill/uL (4.70-6.10); White Blood Cell (WBC) Count 8.5 10x3/uL (4.8-10.8)
[2022-08-20 07:04] LABS: Anion Gap 12 mmol/L (10-20); BUN (Urea Nitrogen) 24 mg/dL (8.4-25.7); CRP (Inflammatory) 7.39 mg/dL (= or < 0.5); Calc. Creatinine Clearance 46 mL/min (70-130); Calcium 8.4 mg/dL (7.8-10.44); Carbon Dioxide 25 mmol/L (23-31); Chloride 103 mmol/L (98-107); Estimated GFR 60; Glucose 90 mg/dL (83-110); Potassium 3.9 mmol/L (3.5-5.1); Sodium 136 mmol/L (136-145)
[2022-08-20] MEDS: Cefepime 1 GM in Sodium Chloride 0.9% 100 ML IVPB SCH ×2 (08:26→20:10)
[2022-08-20] MEDS: Senokot S 8.6-50 MG TAB PO SCH ×3 (08:27→20:10)
[2022-08-20] MEDS: Zinc Sulfate 220 MG CAP PO SCH (08:27)
[2022-08-20] MEDS: Cholecalciferol (Vitamin D3) 400 UNITS TAB PO SCH (08:27)
[2022-08-20] MEDS: Saccharomyces boulardii 250 MG CAP PO SCH (08:27)
[2022-08-20] MEDS: Apixaban 2.5 MG TAB PO SCH ×2 (08:27→20:11)
[2022-08-20] MEDS: Metoprolol Tartrate 25 MG TAB PO SCH ×2 (08:27→20:10)
[2022-08-20] MEDS: Hydrochlorothiazide 25 MG TAB PO SCH (08:27)
[2022-08-20] MEDS: Lisinopril 20 MG TAB PO SCH ×2 (08:27→20:10)
[2022-08-20] MEDS: Acetaminophen 325 MG TAB PO PRN ×3 (08:34→21:53)
[2022-08-20] MEDS: traZODone HCl 50 MG TAB PO PRN (20:09)
[2022-08-20 20:26] LABS: Vancomycin, Trough 14.9 ug/mL
[2022-08-20] MEDS: VANCOMYCIN 1.25 GM/250 ML BAG 1.25 GM in Premix Bag 1 BAG IVPB SCH (21:50)
[2022-08-20] MEDS: Guaifenesin DM 100-10/5 ML UDCUP PO PRN (21:50)
[2022-08-20] MEDS: Melatonin 3 MG TAB PO PRN (21:54)
[2022-08-21 06:50] LABS: #Eosinphils 0.6 thou/uL (0.0-0.7); #Lymphocytes 1.8 thou/uL (1.20-3.40); #Monocytes 0.9 thou/uL (0.11-0.59); #Neutrophils 6.4 thou/uL (1.40-6.50); %Basophils 0.2 % (0.0-1.0); %Eosinophils 6.3 % (0.0-10.0); %Lymphocytes 18.8 % (21.0-51.0); %Monocytes 9.2 % (0.0-10.0); %Neutrophils 65.5 % (42.0-75.0); Hemoglobin 10.7 g/dL (14.0-18.0); Mean Corpuscular HGB CONC 31.8 g/dL (32.0-36.0); Mean Corpuscular Hemoglobin 26.4 pg (27.0-31.0); Mean Platelet Volume 6.7 fL (7.4-10.4); Platelet Count 196 10x3/uL (130-400); RBC Distribution Width 15.3 % (11.5-14.5); Red Blood Cell (RBC) Count 4.05 mill/uL (4.70-6.10); White Blood Cell (WBC) Count 9.8 10x3/uL (4.8-10.8)
[2022-08-21 07:12] LABS: Anion Gap 13 mmol/L (10-20); BUN (Urea Nitrogen) 31 mg/dL (8.4-25.7); Calc. Creatinine Clearance 43 mL/min (70-130); Calcium 8.5 mg/dL (7.8-10.44); Carbon Dioxide 26 mmol/L (23-31); Chloride 104 mmol/L (98-107); Estimated GFR 56; Glucose 99 mg/dL (83-110); Potassium 4.6 mmol/L (3.5-5.1); Sodium 138 mmol/L (136-145)
[2022-08-21] MEDS: Lisinopril 20 MG TAB PO SCH ×2 (08:29→20:35)
[2022-08-21] MEDS: Senokot S 8.6-50 MG TAB PO SCH ×2 (08:29→20:34)
[2022-08-21] MEDS: Saccharomyces boulardii 250 MG CAP PO SCH (08:29)
[2022-08-21] MEDS: Zinc Sulfate 220 MG CAP PO SCH (08:29)
[2022-08-21] MEDS: Hydrochlorothiazide 25 MG TAB PO SCH (08:29)
[2022-08-21] MEDS: Metoprolol Tartrate 25 MG TAB PO SCH ×2 (08:29→20:35)
[2022-08-21] MEDS: Apixaban 2.5 MG TAB PO SCH ×2 (08:30→20:37)
[2022-08-21] MEDS: Cholecalciferol (Vitamin D3) 400 UNITS TAB PO SCH (08:30)
[2022-08-21] MEDS: Cefepime 1 GM in Sodium Chloride 0.9% 100 ML IVPB SCH ×2 (08:31→20:36)
[2022-08-21] MEDS: Acetaminophen 325 MG TAB PO PRN (10:56)
[2022-08-21] MEDS: VANCOMYCIN 1.25 GM/250 ML BAG 1.25 GM in Premix Bag 1 BAG IVPB SCH (22:33)
[2022-08-21] MEDS: traZODone HCl 50 MG TAB PO PRN (22:46)
[2022-08-21] MEDS: Guaifenesin DM 100-10/5 ML UDCUP PO PRN (22:46)
[2022-08-22 08:22] VITALS: TEMP 98
[2022-08-22] MEDS: Hydrochlorothiazide 25 MG TAB PO SCH (08:36)
[2022-08-22] MEDS: Zinc Sulfate 220 MG CAP PO SCH (08:36)
[2022-08-22] MEDS: Metoprolol Tartrate 25 MG TAB PO SCH (08:36)
[2022-08-22] MEDS: Saccharomyces boulardii 250 MG CAP PO SCH (08:36)
[2022-08-22] MEDS: Cholecalciferol (Vitamin D3) 400 UNITS TAB PO SCH (08:36)
[2022-08-22] MEDS: Cefepime 1 GM in Sodium Chloride 0.9% 100 ML IVPB SCH (08:37)
[2022-08-22] MEDS: Senokot S 8.6-50 MG TAB PO SCH (08:37)
[2022-08-22] MEDS: Lisinopril 20 MG TAB PO SCH (08:37)
[2022-08-22] MEDS: Apixaban 2.5 MG TAB PO SCH (08:41)
[2022-08-22] MEDS: Acetaminophen 325 MG TAB PO PRN (10:37)
[2022-08-22 12:13] VITALS: BP 149/72
== END 2022-08-22 17:55 | disposition home or self-care (01) | DRG 871 ==
LOC: ERS 11:17 → IMCU/EMU 14:06 → T4-B 08-19 09:54
PROVIDERS: ADMIT Hospitalist; ATTEND Hospitalist
DX: A41.81 Sepsis due to Enterococcus (principal); J15.6 Pneumonia due to other Gram-negative bacteria; J96.01 Acute respiratory failure with hypoxia; I24.8 Other forms of acute ischemic heart disease; N39.0 Urinary tract infection, site not specified; I48.20 Chronic atrial fibrillation, unspecified; A41.50 Gram-negative sepsis, unspecified; I50.9 Heart failure, unspecified; Z20.822 Contact with and (suspected) exposure to COVID-19; N18.30 Chronic kidney disease, stage 3 unspecified; I15.2 Hypertension secondary to endocrine disorders; B95.2 Enterococcus as the cause of diseases classified elsewhere; Z79.01 Long term (current) use of anticoagulants; Z79.51 Long term (current) use of inhaled steroids; Z79.899 Other long term (current) drug therapy; Z90.49 Acquired absence of other specified parts of digestive tract; Z98.890 Other specified postprocedural states
CPT/HCPCS: 36415; 36416; 71045; 80048; 80053; 80202; 82553; 83605; 83735; 83880; 84484; 85025; 86140; 87040; 87077; 87081; 87086; 87186; 87449; 87899; 93005; 94640; 96365; 96367; 97139; J0360; J0456; J0692; J0696; J3370; J3490; J7050; J7611; J7620

== ENCOUNTER 2023-03-02 07:45 | Outpatient (CLI) | payer BC, MEDICARE | END 2023-03-02 07:46 | disposition home or self-care (01) | LOC: BICCT 07:45 | PROVIDERS: ATTEND Internal Medicine Hematology & Oncology | DX: C83.03 Small cell B-cell lymphoma, intra-abdominal lymph nodes (principal) | CPT/HCPCS: 74177; 82565 ==

== ENCOUNTER 2023-04-03 09:38 | Outpatient (CLI) | payer BC, MEDICARE | END 2023-04-03 09:39 | disposition home or self-care (01) | LOC: LAB 09:38 | PROVIDERS: ATTEND Registered Nurse | DX: Z53.9 Procedure and treatment not carried out, unspecified reason (principal) ==

== ENCOUNTER 2024-02-29 08:55 | Outpatient (CLI) | payer BC | END 2024-02-29 08:56 | disposition home or self-care (01) | LOC: BICCT 08:55 | PROVIDERS: ATTEND Internal Medicine Hematology & Oncology | DX: C83.03 Small cell B-cell lymphoma, intra-abdominal lymph nodes (principal) | CPT/HCPCS: 74176 ==

== ENCOUNTER 2024-04-17 19:15 | Emergency (ER) | payer BC | END 2024-04-17 20:20 | disposition home or self-care (01) | LOC: ERS 19:15 | DX: S00.01XA Abrasion of scalp, initial encounter (principal); W01.198A Fall on same level from slipping, tripping and stumbling with subsequent striking against other object, initial encounter; I10 Essential (primary) hypertension; Y93.B2 Activity, push-ups, pull-ups, sit-ups | CPT/HCPCS: 70450 ==